=== PATIENT | male | born 1930 | race Caucasian/White ===

== ENCOUNTER 2016-08-30 18:37 | Emergency (ER) | payer OTHER, MEDICARE ==
[~2016-08-30] VITALS: Ht 172.7 cm; Wt 59.0 kg
[~2016-08-30 18:37] MED LIST: ACHYD1T PO; ASP325TEC; ATOR80TA76 PO; ATR20T; CARV3.122 PO; CLOP75TA28 PO; CPR250T PO; CPR500T PO; DUTA0.5C14 PO; GLIM4TAB PO; GLIP-123; GLYB2.5T4 PO; LEVO500T69 PO; MEMA1CAP; MEMA28CA PO; MTF500T; MULT1TAB63; ONDA4TAB10 PO; OXYB5TAB9; OXYC1TAB87 PO; PHEN200T27 PO; TAMS0.4C2 PO; TIMOLOL; TMSL.4C PO
--- NOTE | 2016-08-30 19:58 | ED GU-Male ---
General Chief Complaint: -Male Stated Complaint: BLOOD IN URINE Nursing Triage Note: PT C/O PAIN AND BLOOD WITH URINATION. Source: patient Exam Limitations: no limitations History of Present Illness Time seen by provider: 19:56 Initial Comments Brought to ER by his and daughter. They report "blood coming out of his Imogene" since earlier today. He also complained of some pain upon urination. 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 Timing/Duration: just prior to arrival Severity/Quality: moderate Location: unknown Associated Symptoms: denies symptomsNo fever/chills, No nausea/vomiting Allergies and Home Medications Allergies Coded Allergies: Cephalosporins (Unverified Allergy, Mild, 08/31/06) Penicillins (Unverified Allergy, Mild, 08/31/06) Home Medications Atorvastatin Calcium 80 Mg Tablet 80 MG PO DAILY (Reported) Carvedilol 3.125 Mg Tablet 3.125 MG PO BID (Reported) Clopidogrel Bisulfate 75 Mg Tablet 75 MG PO DAILY (Reported) Dutasteride 0.5 Mg Capsule 0.5 MG PO DAILY (Reported) Glimepiride 4 Mg Tablet 4 MG PO BID (Reported) Memantine HCl 28 Mg Cap.spr.24 28 MG PO DAILY@1730 (Reported) Ondansetron HCl 4 Mg Tablet 4 MG PO Q8H PRN PRN NAUSEA/VOMITING (Reported) Tamsulosin HCl 0.4 Mg Cap.er.24h 0.4 MG PO DAILY (Reported) Constitutional: see HPI EENTM: see HPI Respiratory: no symptoms reported Cardiovascular: no symptoms reported Genitourinary: see HPI hematuria Musculoskeletal: no symptoms reported Skin: no symptoms reported Psychiatric/Neurological: No Symptoms Reported Endocrine: No Symptoms Reported Past Orwoeqs-Tovqsa-Jmovjc Hx Patient Social History Alcohol Use: Denies Use Recreational Drug Use: No Smoking Status: Unknown if Ever Smoked Recent Foreign Travel: No Contact w/Someone Who Travel: No Recent Infectious Disease Expo: No Recent Hopitalizations: Yes (TERRA A WEEK AGO N/V/D) Physical Abuse Screen: No Sexual Abuse: No Immunizations Up To Date Tetanus Booster (TDap): Unknown Date of Pneumonia Vaccine: Jul 10, 2012 Date of Influenza Vaccine: Jun 16, 2016 Surgeries HX Surgeries: Yes (CABG 1988; CARDIAC STENTS X 3; BILATERAL CATARACTS; LITHOTRIPSY) Surgeries: Cardiac, CABG, Coronary Stent, Eye Surgery, Rectal Respiratory Hx Respiratory Disorders: No Cardiovascular Hx Cardiac Disorders: Yes Cardiac Disorders: Chronic Edema/Swelling, Coronary Artery Disease, High Cholesterol, Hypertension Neurological Hx Neurological Disorders: Yes Neurological Disorders: Dementia Reproductive System Hx Reproductive Disorders: No Genitourinary Hx Genitourinary Disorders: Yes Genitourinary Disorders: Prostate Problems, Kidney Stones Gastrointestinal Hx Gastrointestinal Disorders: No Musculoskeletal Hx Musculoskeletal Disorders: Yes (LEG CRAMPS EVERY ONCE IN A WHILE) Endocrine Hx Endocrine Disorders: Yes Endocrine Disorders: Diabetes, Non-Insulin dep HEENT HX ENT Disorders: Yes (WITH SURGERY) HEENT Disorders: Cataract Loss of Vision: Left Hearing Impairment: Denies Cancer Hx Cancer: Yes Cancer: Skin Psychosocial Hx Psychiatric Problems: No Integumentary HX Skin/Integumentary Disorder: Yes (SKIN CANCER) Blood Transfusions Hx Blood Disorders: Yes (CANNOT DONATE BLOOD DUE TO YELLOW JAUNDICE 40 YRS AGO) Family Medical History Family Medial History: ALZHEIMER'S G8 SISTER OF CANCER G8 BROTHER HEART PROBLEMS G8 BROTHER Physical Exam Vital Signs Vital Sign - Last 12Hours 08/30/16 19:08 Temp 98.7 Pulse 79 Resp 18 B/P 125/104 Pulse Ox 98 O2 Delivery Room Air Capillary Refill : Less Than 3 Seconds General Appearance: WD/WN no apparent distress HEENT: PERRL/EOMI normal ENT inspection Neck: non-tender full range of motion Respiratory: normal breath sounds no respiratory distress no accessory muscle use Gastrointestinal: non tender soft Extremities: normal range of motion non-tender Neurologic/Psychiatric: alert normal mood/affect other (disoriented per baseline) Skin: normal color warm/dry Progress/Results/Core Measures Results/Orders Lab Results Laboratory Tests Test 08/30/16 19:46 Range/Units Urine Bacteria FEW H /HPF Urine Bilirubin NEGATIVE NEGATIVE Urine Casts NONE /LPF Urine Clarity SLIGHTLY CLOUDY Urine Color YELLOW Urine Crystals NONE /LPF Urine Culture Indicated YES Urine Glucose (UA) 1+ H NEGATIVE Urine Ketones NEGATIVE NEGATIVE Urine Leukocyte Esterase 3+ H NEGATIVE Urine Mucus SMALL H /LPF Urine Nitrite NEGATIVE NEGATIVE Urine Protein 1+ H NEGATIVE Urine RBC >100 H /HPF Urine RBC (Auto) 5+ H NEGATIVE Urine Specific [place] 1.025 H 1.016-1.022 Urine Urobilinogen 1 NORMAL MG/DL Urine WBC 50-100 H /HPF Urine pH 5 5-9 My Orders Orders-CARLOS ROBERTS APRN Ua Culture If Indicated (08/30/16 19:09) Urine Culture (08/30/16 19:46) Levofloxacin Tablet (Levaquin Tablet) (08/30/16 20:15) Vital Signs/I&O Vital Sign - Last 12Hours 08/30/16 19:08 Temp 98.7 Pulse 79 Resp 18 B/P 125/104 Pulse Ox 98 O2 Delivery Room Air Blood Pressure Mean: 111 Departure Impression Impression: Primary Impression: Urinary tract infection Qualified Code: N30.01 - Acute cystitis with hematuria Additional Impression: Dementia Disposition: HOME, SELF-CARE Condition: Stable Departure-Patient Inst. Decision time for Depature: 20:16 Referrals: MARY KEENE DO (PCP/Family) Primary Care Physician Patient Instructions: Urinary Tract Infection, Adult (DC) Add. Discharge Instructions: 1. Antibiotic as directed 2. Follow-up with your doctor next week 3. Return to ER for any concerns All discharge instructions reviewed with patient and/or family. Voiced understanding. Scripts Ciprofloxacin HCl (Cipro)500 Mg [id number] Mg PO BID #14 TAB Prov:CARLOS ROBERTS APRN 08/30/16 CARLOS ROBERTS APRN Aug 30, 2016 19:58
[2016-08-30 20:01] LABS: BILIRUBIN,URINE NEGATIVE (NEGATIVE); KETONES,URINE NEGATIVE (NEGATIVE); LEUKOCYTE ESTERASE ,URINE 3+ (NEGATIVE); NITRITE,URINE NEGATIVE (NEGATIVE); PH,URINE 5 (5-9); PROTEIN,URINE 1+ (NEGATIVE); UROBILINOGEN,URINE 1 MG/DL (NORMAL)
[2016-08-30 20:11] LABS: WBC,URINE 50-100 /HPF
[2016-08-30] MEDS ORDERED: LEVOFLOXACIN 500 MG TAB (LEVAQUIN) PO ONE (20:15)
[2016-08-30] MEDS ORDERED: CIPR-225 PO (20:17)
[2016-08-30 20:41] VITALS: BP 131/72
== END 2016-08-30 20:37 | disposition home or self-care (01) ==
LOC: EDUNIT# 18:37 → ER 18:38
DX: N30.91 Cystitis, unspecified with hematuria (principal); F03.90 Unspecified dementia, unspecified severity, without behavioral disturbance, psychotic disturbance, mood disturbance, and anxiety; E11.9 Type 2 diabetes mellitus without complications; I10 Essential (primary) hypertension; I69.998 Other sequelae following unspecified cerebrovascular disease; Z79.02 Long term (current) use of antithrombotics/antiplatelets; Z79.84 Long term (current) use of oral hypoglycemic drugs; Z79.899 Other long term (current) drug therapy; Z95.1 Presence of aortocoronary bypass graft; Z95.5 Presence of coronary angioplasty implant and graft
CPT/HCPCS: 81000; 87077; 87088; 87186; 99283

== ENCOUNTER 2016-09-04 13:57 | Emergency (ER) | payer OTHER, MEDICARE ==
[~2016-09-04] VITALS: Ht 172.7 cm; Wt 63.5 kg
[~2016-09-04 13:57] MED LIST changes: +CIPR-225 PO
--- OUTSIDE RECORDS SUMMARY | 2016-09-04 14:04 | XMS REPORT | Continuity of Care Document ---
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 No 08/30/16 7:11pm Organ Donor Yes 08/30/16 7:11pm Resuscitation Status Full Code 08/30/16 7:11pm Chief Complaint and Reason for Visit Chief Complaint -Male Reason for Visit Urinary tract infection Dementia Problems Active Problems Medical Problem Onset Date Status Dementia Unknown Acute Hx of coronary artery disease Unknown Acute Urinary tract infection Unknown Acute Medications Current Home Medications Medication Dose Units Route Directions Days/Qty Instructions Start Date Tamsulosin Hcl 0.4 Mg 0.4 Mg Oral Daily 06/22/16 Dutasteride 0.5 Mg 0.5 Mg Oral Daily 06/22/16 Glimepiride 4 Mg 4 Mg Oral Twice A Day 06/22/16 Carvedilol 3.125 Mg 3.125 Mg Oral Twice A Day 06/22/16 Clopidogrel Bisulfate 75 Mg 75 Mg Oral Daily 06/22/16 Atorvastatin Calcium 80 Mg 80 Mg Oral Daily 06/22/16 Memantine Hcl 28 Mg 28 Mg Oral Daily@1730 06/22/16 Ondansetron Hcl 4 Mg 4 Mg Oral Every 8HRS as needed for Nausea/Vomiting 06/23/16 Ciprofloxacin Hcl 500 Mg 500 Mg Oral Twice A Day 14 08/30/16 Past Home Medications Medication Directions Ordered Status Aspirin 325 Mg Tablet, As Needed 08/31/06 Discontinued Multivitamins 1 Ea Tablet, As Needed 08/31/06 Discontinued [Timolol] , 08/31/06 Discontinued Metformin Hcl (Glucophage) 500 Mg Tablet, 08/31/06 Discontinued Glipizide 10 Mg Tablet, 08/31/06 Discontinued Atorvastatin Calcium 20 Mg Tablet, 08/31/06 Discontinued Glyburide (Micronase) 2.5 Mg Tablet, 1 Each Oral Three Times A Day Before Meals 07/10/12 Discontinued Tamsulosin Hcl 0.4 Mg Cap, 0.4 Mg Oral Bedtime 07/11/12 Discontinued Oxycodone/Acetaminophen 1 Tab Tablet, 1 Tab Oral Every 4HRS as needed Discontinued Ciprofloxacin Hcl 250 Mg Tablet, 1 Tab Oral Twice A Day 07/11/12 Discontinued Ciprofloxacin 500 Mg Tablet, 1 Tab Oral Twice A Day 07/14/12 Discontinued Phenazopyridine Hcl 200 Mg Tablet, 1 Each Oral Three Times A Day And Prn 13/08 Discontinued Acetaminophen/Hydrocodone Bitart 1 Tab Tablet, 1 - 2 Tab Oral Every 4HRS as needed 07/14/12 Discontinued Tamsulosin Hcl 0.4 Mg Cap.sr.24h, 1 Cap Oral Daily 07/21/12 Discontinued Ciprofloxacin 500 Mg Tablet, 1 Tab Oral Twice A Day 07/21/12 Discontinued Levofloxacin 500 Mg Tab, 1 Each Oral Daily 07/22/12 Discontinued Memantine Hcl 1 Each Cap24.dspk, 06/22/16 Discontinued Oxybutynin Chloride 5 Mg Tablet, 06/22/16 Discontinued Social History Social History Problem Response Recorded Date/Time Alcohol Use Denies Use 02/18/2013 5:12pm Recreational Drug Use No 02/18/2013 5:12pm Recent Foreign Travel No 02/18/2013 5:12pm Recent Infectious Disease Exposure No 02/18/2013 5:12pm Hospitalization with Isolation Denies 08/30/2016 7:08pm Smoking Status Unknown if Ever Smoked 08/30/2016 7:11pm Recent Hopitalizations Y TERRA A WEEK AGO N/V/D 08/30/2016 7:11pm Hospitalization with Isolation Denies 08/30/2016 7:08pm Query Response Start Date Stop Date Smoking Status Unknown if Ever Smoked Hospital Discharge Instructions No hospital discharge instructions. Plan of Care Discharge Date 08/30/16 8:37pm Disposition 01 HOME, SELF-CARE Condition at Discharge Stable Instructions/Education Provided Urinary Tract Infection, Adult (DC) Prescriptions See Medication Section Referrals MARY KEENE DO - Primary Care Physician Additional Instructions/Education 1. Antibiotic as directed 2. Follow-up with your doctor next week 3. Return to ER for any concerns All discharge instructions reviewed with patient and/or family. Voiced understanding. Functional Status No functional status results. Allergies, Adverse Reactions, Alerts Allergen Type Severity Reaction Status Last Updated Penicillins ([id number]) Allergy Mild Active 08/31/06 Cephalosporins ([id number]) Allergy Mild Active 08/31/06 Immunizations No immunization records. Vital Signs Acute Vital Signs Vital Response Date/Time Temperature (Fahrenheit) 98.7 degrees F (97.6 - 99.5) 08/30/2016 7:08pm Temperature (Calculated Celsius) 37.26152 degrees C (36.4 - 37.5) 08/30/2016 7:08pm Temperature Source Temporal 08/30/2016 7:08pm Pulse Rate (adult) 79 bpm (60 - 90) 08/30/2016 7:08pm Respiratory Rate 18 bpm (12 - 24) 08/30/2016 7:08pm O2 Sat by Pulse Oximetry 98 % (88 - 100) 08/30/2016 7:08pm Blood Pressure 125/104 mm Hg 08/30/2016 7:08pm Blood Pressure Mean 111 mm Hg 08/30/2016 7:08pm Pain Numeric Pain Scale 0-No Pain 08/30/2016 7:08pm Height (Feet) 5 feet 08/30/2016 7:08pm Height (Inches) 8 inches 08/30/2016 7:08pm Height (Calculated Centimeters) 172.018626 cm 08/30/2016 7:08pm Weight (Pounds) 130 pounds 08/30/2016 7:08pm Weight (Calculated Kilograms) 58.105832 kilograms 08/30/2016 7:08pm Capillary Refill Capillary Refill Less Than 3 Seconds 08/30/2016 7:08pm Height 5 ft 8 in Weight 130 lb Body Mass Index 19.8 kg/m^2 Results Laboratory Results Test Name Result Units Flags Reference Collection Date/Time Result Date/ Time Comments Urine Color YELLOW 08/30/2016 7:46pm 08/30/2016 8:11pm Urine Clarity SLIGHTLY CLOUDY 08/30/2016 7:46pm 08/30/2016 8:11pm Urine pH 5 5-9 08/30/2016 7:46pm 08/30/2016 8:11pm Urine Specific [place] 1.025 * 1.016-1.022 08/30/2016 7:46pm 2016 8:11pm Urine Protein 1+ * NEGATIVE 08/30/2016 7:46pm 08/30/2016 8:11pm Urine Glucose (UA) 1+ * NEGATIVE 08/30/2016 7:46pm 08/30/2016 8:11pm Urine RBC (Auto) 5+ * NEGATIVE 08/30/2016 7:46pm 08/30/2016 8:11pm Urine Ketones NEGATIVE NEGATIVE 08/30/2016 7:46pm 08/30/2016 8:11pm Urine Nitrite NEGATIVE NEGATIVE 08/30/2016 7:46pm 08/30/2016 8:11pm Urine Bilirubin NEGATIVE NEGATIVE 08/30/2016 7:46pm 08/30/2016 8: 11pm Urine Urobilinogen 1 MG/DL NORMAL 08/30/2016 7:46pm 08/30/2016 8:11pm Urine Leukocyte Esterase 3+ * NEGATIVE 08/30/2016 7:46pm 08/30/2016 8: 11pm Urine RBC >100 /HPF * 08/30/2016 7:46pm 08/30/2016 8:11pm Urine WBC 50-100 /HPF * 08/30/2016 7:46pm 08/30/2016 8:11pm Urine Bacteria FEW /HPF * 08/30/2016 7:46pm 08/30/2016 8:11pm Urine Crystals NONE /LPF 08/30/2016 7:46pm 08/30/2016 8:11pm Urine Casts NONE /LPF 08/30/2016 7:46pm 08/30/2016 8:11pm Urine Mucus SMALL /LPF * 08/30/2016 7:46pm 08/30/2016 8:11pm Urine Culture Indicated YES 08/30/2016 7:46pm 08/30/2016 8:11pm Procedures No known history of procedures. Encounters Encounter Location Arrival/Admit Date Discharge/Depart Date Attending Provider Departed Emergency Room [facility] 08/30/16 6:38pm 08/30 8:37pm CARLOS ROBERTS APRN Recent Diagnosis
--- NOTE | 2016-09-04 15:30 | ED Upper Extremity ---
General Chief Complaint: Upper Extremity Stated Complaint: LEFT HAND TINGLING Nursing Triage Note: PT TO ED W FAMILY, PT STATES HAS L HAND NUMBNESS. PT HAS DEMENTIA, PT IS ABLE TO MOVE HAND BILATERALLY, PT SOLDERER EQUAL. PT HAS HX STROKE IN JUL 01. PT IS ALERT AND TALKING W FAMILY AND THIS RN. PT DOES NOT AMBULATE Nursing Sepsis Screen: No Definite Risk Source: patient Exam Limitations: no limitations History of Present Illness Time seen by provider: 15:16 Initial Comments Here with report of left hand numbness. This occurred earlier today but has since resolved. Patient previously had a stroke that affected the left side and he was scared by this and wanted evaluation. Currently he has no complaints. Onset: this morning Severity: mild Pain/Injury Location: left hand Method of Injury: unknown Modifying Factors: Improves With Rest Allergies and Home Medications Allergies Coded Allergies: Cephalosporins (Unverified Allergy, Mild, 08/31/06) Penicillins (Unverified Allergy, Mild, 08/31/06) Home Medications Atorvastatin Calcium 80 Mg Tablet 80 MG PO DAILY (Reported) Carvedilol 3.125 Mg Tablet 3.125 MG PO BID (Reported) Ciprofloxacin HCl 500 Mg Tablet #14 500 MG PO BID Prescribed by: CARLOS ROBERTS on 08/30/162016 Clopidogrel Bisulfate 75 Mg Tablet 75 MG PO DAILY (Reported) Dutasteride 0.5 Mg Capsule 0.5 MG PO DAILY (Reported) Glimepiride 4 Mg Tablet 4 MG PO BID (Reported) Memantine HCl 28 Mg Cap.spr.24 28 MG PO DAILY@1730 (Reported) Ondansetron HCl 4 Mg Tablet 4 MG PO Q8H PRN PRN NAUSEA/VOMITING (Reported) Tamsulosin HCl 0.4 Mg Cap.er.24h 0.4 MG PO DAILY (Reported) Constitutional: see HPINo chills, No fever Respiratory: no symptoms reported Cardiovascular: no symptoms reported Genitourinary: no symptoms reported Musculoskeletal: no symptoms reported Skin: no symptoms reported Psychiatric/Neurological: See HPI Anxiety Paresthesia All Other Systems Reviewed Negative Unless Noted: Yes Past Xxrzmam-Ckcvsk-Xgroup Hx Patient Social History Alcohol Use: Denies Use Recreational Drug Use: No Smoking Status: Never a Smoker Recent Foreign Travel: No Contact w/Someone Who Travel: No Recent Infectious Disease Expo: No Recent Hopitalizations: No ([place] A WEEK AGO N/V/D) Physical Abuse Screen: No Sexual Abuse: No Immunizations Up To Date Tetanus Booster (TDap): Unknown Date of Pneumonia Vaccine: Jul 10, 2012 Date of Influenza Vaccine: Jun 16, 2016 Surgeries HX Surgeries: Yes (CABG 1988; CARDIAC STENTS X 3; BILATERAL CATARACTS; LITHOTRIPSY) Surgeries: Cardiac, CABG, Coronary Stent, Eye Surgery, Rectal Respiratory Hx Respiratory Disorders: No Cardiovascular Hx Cardiac Disorders: Yes Cardiac Disorders: Chronic Edema/Swelling, Coronary Artery Disease, High Cholesterol, Hypertension Neurological Hx Neurological Disorders: Yes Neurological Disorders: Dementia Reproductive System Hx Reproductive Disorders: No Genitourinary Hx Genitourinary Disorders: Yes Genitourinary Disorders: Prostate Problems, Kidney Stones Gastrointestinal Hx Gastrointestinal Disorders: No Musculoskeletal Hx Musculoskeletal Disorders: Yes (LEG CRAMPS EVERY ONCE IN A WHILE) Endocrine Hx Endocrine Disorders: Yes Endocrine Disorders: Diabetes, Non-Insulin dep HEENT HX ENT Disorders: Yes (WITH SURGERY) HEENT Disorders: Cataract Loss of Vision: Left Hearing Impairment: Denies Cancer Hx Cancer: Yes Cancer: Skin Psychosocial Hx Psychiatric Problems: No Integumentary HX Skin/Integumentary Disorder: Yes (SKIN CANCER) Blood Transfusions Hx Blood Disorders: Yes (CANNOT DONATE BLOOD DUE TO YELLOW JAUNDICE 40 YRS AGO) Reviewed Nursing Assessment Reviewed/Agree w Nursing PMH: Yes Family Medical History Significant Family History: No Pertinent Family Hx Family Medial History: ALZHEIMER'S G8 SISTER OF CANCER G8 BROTHER HEART PROBLEMS G8 BROTHER Physical Exam Vital Signs Vital Sign - Last 12Hours 09/04/16 14:15 Temp 97.1 Pulse 77 Resp 18 B/P 127/66 Pulse Ox 98 Capillary Refill : Less Than 3 Seconds General Appearance: WD/WN no apparent distress HEENT: PERRL/EOMI pharynx normal Neck: full range of motion supple Cardiovascular: regular rate, rhythm no murmur Respiratory: lungs clear normal breath sounds Gastrointestinal: non tender soft Shoulder: normal inspection non-tender no evidence of injury normal ROM Elbow/Forearm: normal inspection, non-tender, no evidence of injury, normal ROM Wrist: Yes normal inspection, Yes non-tender, Yes no evidence of injury, Yes normal ROM Hand: normal inspection, non-tender, no evidence of injury, normal ROM, Bilateral Neurologic/Psychiatric: no motor/sensory deficits alert normal mood/affect oriented x 3 Skin: normal color warm/dry Progress/Results/Core Measures Results/Orders Vital Signs/I&O Vital Sign - Last 12Hours 09/04/16 14:15 Temp 97.1 Pulse 77 Resp 18 B/P 127/66 Pulse Ox 98 Blood Pressure Mean: 86 Progress Note : Progress Note Seen and evaluated. Striker Off strength equal bilateral. Good distal pulses and cap refill. No acute findings now and patient is reassured. Discharged home with return precautions. Patient family verbalized understanding instructions and agreement with plan. Departure Impression Impression: Primary Impression: Paresthesia of hand Qualified Code: R20.2 - Paresthesia of skin Disposition: HOME, SELF-CARE Condition: Improved Departure-Patient Inst. Decision time for Depature: 15:29 Referrals: NO,LOCAL PHYSICIAN (PCP/Family) Primary Care Physician Patient Instructions: Paresthesias (DC) Add. Discharge Instructions: All discharge instructions reviewed with patient and/or family. Voiced understanding. Continue home medications as directed. Follow-up with your doctor next week for recheck. Return for worsening, fever, vomiting, weakness, breathing problems or other concerns as needed. DAMIEN ESPANA MD Sep 04, 2016 15:30
[2016-09-04 15:47] VITALS: BP 127/66
== END 2016-09-04 15:47 | disposition home or self-care (01) ==
LOC: EDUNIT# 13:57 → ER 14:00
DX: R20.2 Paresthesia of skin (principal); I10 Essential (primary) hypertension; I25.10 Atherosclerotic heart disease of native coronary artery without angina pectoris; E11.9 Type 2 diabetes mellitus without complications; F03.90 Unspecified dementia, unspecified severity, without behavioral disturbance, psychotic disturbance, mood disturbance, and anxiety; I69.954 Hemiplegia and hemiparesis following unspecified cerebrovascular disease affecting left non-dominant side; Z79.84 Long term (current) use of oral hypoglycemic drugs; Z79.899 Other long term (current) drug therapy; Z79.02 Long term (current) use of antithrombotics/antiplatelets; Z95.1 Presence of aortocoronary bypass graft; Z95.5 Presence of coronary angioplasty implant and graft
CPT/HCPCS: 99282

== ENCOUNTER 2017-11-20 18:31 | Inpatient (IN) | payer MEDICARE, OTHER ==
[~2017-11-20] VITALS: Ht 172.7 cm; Wt 55.3 kg
[~2017-11-20 18:31] MED LIST changes: +ACET325T49 PO; +ACHD5005 PO; +ASPI-983 PO; +BISA5TAB8 PO; +CALC-823 PO; +MEMA10TA22 PO; +SENN-140 PO
--- OUTSIDE RECORDS SUMMARY | 2017-11-20 18:43 | XMS REPORT ---
Author Author MAGALI GARCIA Organization [facility] Address [address] [place] [address] Care Team Providers Care Portable Track Crew Chief Name Role Phone JOSE MAGALI Unavailable PROBLEMS Type Condition ICD9-CM Code [id number] Code Onset Dates Condition Status SNOMED Code Problem Postoperative anemia D64.9 Active 369111618 Problem Coronary artery disease involving coronary bypass graft of [place] heart without angina pectoris I25.810 Active 151757254 Problem Fracture of left hip requiring operative repair, closed, initial encounter S72.002A Active 809979201 Problem Type 2 diabetes mellitus without complication, without long-term current use of insulin E11.9 Active 200341053 Problem Paresthesias in left hand R20.2 Active 822454246 ALLERGIES Substance Reaction Event Type Date Status Penicillin G Benzathine Unknown Drug Allergy Jun, Active SOCIAL HISTORY Never Assessed PLAN OF CARE VITAL SIGNS Temperature 97.3 degrees Fahrenheit 2016 Heart Rate 80 bpm 2016 Respiratory Rate 20 2016 Blood pressure systolic 118 mmHg 2016 Blood pressure diastolic 64 mmHg 2016 MEDICATIONS Medication Instructions Dosage Frequency Start Date End Date Duration Status Atorvastatin Calcium 80 MG Orally Once a day 1 tablet 24h Active Carvedilol 3.125 MG Active Glimepiride 4 MG Orally twice a day 1 tablet with breakfast or the first main meal of the day 12h Active Namenda XR 28 MG Orally Once a day 1 capsule 24h Active Zofran 4 MG Orally every 8 hours as needed 1 tablet May, 5 days Active VESIcare 5 MG Orally Once a day 1 tablet 24h Active Clopidogrel Bisulfate 75 MG Orally Once a day 1 tablet 24h Active Oxybutynin Chloride 5 MG Orally Twice a day 1 tablet 12h Active RESULTS No Results PROCEDURES No Known procedures IMMUNIZATIONS No Known Immunizations MEDICAL (GENERAL) HISTORY Type Description Date Medical History Cardiac Medical History Skin cancer Surgical History cardiac stent Surgical History cataract removal Surgical History Open heart surgery Hospitalization History diarrhea/ weakness 2015
--- OUTSIDE RECORDS SUMMARY | 2017-11-20 18:43 | XMS REPORT ---
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, without long-term current use of insulin E11.9 Active 745885105 Problem Paresthesias in left hand R20.2 Active 641567040 ALLERGIES No Information ENCOUNTERS Encounter Location Date Diagnosis [facility] [id number] [place] [id number] Feb, [facility] [id number] [place] [id number] Feb, [facility] [employer] [facility] [address] [place] [phone] Jan, Type 2 diabetes mellitus without complication, without long-term current use of insulin E11.9 ; Coronary artery disease involving coronary bypass graft of [place] heart without angina pectoris I25.810 and Postoperative anemia D64.9 [facility] [address] [facility] [id number] [phone] Jan, [facility] [address] [id number] [address] Jun, Paresthesias in left hand R20.2 [facility] [address] [id number], [place] [address] May, Gastroenteritis K52.9 IMMUNIZATIONS No Known Immunizations SOCIAL HISTORY Never Assessed REASON FOR VISIT New [place] admit PLAN OF CARE VITAL SIGNS MEDICATIONS Medication Instructions Dosage Frequency Start Date End Date Duration Status Clopidogrel Bisulfate 75 MG Orally Once a day 1 tablet 24h Active Acetaminophen 325 MG Orally every 6 hrs 2 tablets as needed 6h Active Bisacodyl 5 MG Orally Once a day 1 tablet as needed 24h Active Aspirin EC 81 MG Orally Once a day 1 tablet 24h Active Carvedilol 3.125 MG Orally 2 times a day 1 tablet 12h Active Memantine HCl 10 MG Orally Twice a day 1 tablet 12h Active Senna Concentrate 8.6 MG Orally twice a day 1 tablet 12h Active Glimepiride 4 MG Orally twice a day 1 tablet with breakfast or the first main meal of the day 12h Active Hydrocodone-Acetaminophen 5-325 MG Orally every 4 hrs 1-2 tablet as needed 4h Active Calcium Carbonate 500 MG Orally Once a day 1 tablet 24h Active RESULTS No Results PROCEDURES No Known procedures INSTRUCTIONS MEDICATIONS ADMINISTERED No Known Medications MEDICAL (GENERAL) HISTORY Type Description Date Medical History Cardiac Medical History Skin cancer Surgical History cardiac stent Surgical History cataract removal Surgical History Open heart surgery Hospitalization History diarrhea/ weakness 2015
--- OUTSIDE RECORDS SUMMARY | 2017-11-20 18:44 | XMS REPORT | Continuity of Care Document ---
Author Author [facility] Organization [facility] Address Unknown Phone Unavailable Allergies Active Description Code Type Severity Reaction Onset Reported/Identified Relationship to Patient Clinical Status Yes Cephalosporins [id number] Drug Allergy Mild N/A 08/31/2006 Yes Penicillins [id number] Drug Allergy Mild N/A 08/31/2006 Medications There is no data. 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 04/22/2012 Ot V45.82 PERCUTANEOUS TRANSLUM CORON ANGIOPLASTY 07/11/2012 Ot 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 07/11/2012 Ot 250.00 DIAB EUGENIA WO COMPL, TYPE II OR UNSPEC TY 07/11/2012 Ot 272.4 HYPERLIPIDEMIA NEC/NOS 07/11/2012 Ot 365.9 GLAUCOMA NOS 07/11/2012 Ot 412 OLD MYOCARDIAL INFARCT 07/11/2012 Ot 414.00 CORON ATHEROSCLER NOS TYPE VESSEL, NATIV 07/11/2012 Ot 443.9 PERIPH VASCULAR DIS NOS 07/11/2012 Ot 562.10 DIVERTICULOSIS COLON (W/O MENT OF HEMORR 07/11/2012 Ot 592.0 CALCULUS OF KIDNEY 07/11/2012 Ot 592.1 CALCULUS OF URETER 07/11/2012 Ot 593.2 CYST OF KIDNEY, ACQUIRED 07/11/2012 Ot 600.00 HYPERTROPHY (BENIGN) OF PROSTATE W/O URI 07/11/2012 Ot 702.0 ACTINIC KERATOSIS 07/11/2012 Ot 715.90 OSTEOARTHROS NOS-UNSPEC 07/11/2012 Ot V04.81 ND FOR PROPHYLACTIC VACCIN AND INOCULATI 07/11/2012 Ot 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 02/18/2013 [place] FACC, ALI FACP CCDS Ot 250.00 DIAB EUGENIA WO COMPL, TYPE II OR UNSPEC TY 02/18/2013 [place] FACC, ALI FACP CCDS Ot 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,OTH INFERIOR WALL,INI 02/18/2013 [place] FACC, ALI FACP CCDS Ot 414.01 CORONARY ATHEROSCLEROSIS OF [place] CORON 02/18/2013 [place] FACC, ALI FACP CCDS Ot 427.89 CARDIAC DYSRHYTHMIAS NEC 02/18/2013 BRE WEBERC, ALI FACP CCDS Ot 458.9 HYPOTENSION NOS 02/18/2013 [place] FACC, ALI FACP CCDS Ot 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 09/24/2014 MARY KEENE DO Ot 786.2 01/04/2015 EATON DOMARY Ot 786.2 03/04/2016 EATON MARY WASHINGTON Ot 786.2 COUGH 03/04/2016 EATMARY HOU DO Ot 786.2 COUGH 03/05/2016 MARY KEENE DO Ot R10.32 LEFT LOWER QUADRANT PAIN 03/05/2016 MARY KEENE DO Ot Z90.49 ACQUIRED ABSENCE OF OTHER SPECIFIED PART 03/16/2016 MARY KEENE DO Ot R10.32 LEFT LOWER QUADRANT PAIN 03/16/2016 EATON MARY [place]ASHINGTON Ot Z90.49 ACQUIRED ABSENCE OF OTHER SPECIFIED PART 04/01/2016 EATON MARY WASHINGTON Ot R10.32 LEFT LOWER QUADRANT PAIN 04/01/2016 EATON MARY WASHINGTON Ot Z90.49 ACQUIRED ABSENCE OF OTHER SPECIFIED PART 05/16/2016 Ot 788.20 RETENTION OF URINE NOS 05/16/2016 Ot 791.9 ABN URINE FINDINGS NEC 05/16/2016 Ot V45.89 POSTSURGICAL STATES NEC 06/18/2016 EATMARY HOU DO Ot 786.2 COUGH 06/18/2016 MARY KEENE DO Ot R10.32 LEFT LOWER QUADRANT PAIN 06/18/2016 MARY KEENE DO Ot Z90.49 ACQUIRED ABSENCE OF OTHER SPECIFIED PART 06/19/2016 OTHER, UNLISTED Ot N17.9 ACUTE KIDNEY FAILURE, UNSPECIFIED 06/24/2016 ABDULLAHI MURRIETA MD Ot E11.9 TYPE 2 DIABETES MELLITUS WITHOUT COMPLIC 06/24/2016 [place], ABDULLAHI Chinchilla Ot E78.00 PURE HYPERCHOLESTEROLEMIA, UNSPECIFIED 06/24/2016 ABDULLAHI MURRIETA MD Ot F03.90 UNSPECIFIED DEMENTIA WITHOUT BEHAVIORAL 06/24/2016 ABDULLAHI MURRIETA MD Ot G81.94 HEMIPLEGIA, UNSPECIFIED AFFECTING LEFT N 06/24/2016 ABDULLAHI MURRIETA MD Ot I10 ESSENTIAL (PRIMARY) HYPERTENSION 06/24/2016 ABDULLAHI MURRIETA MD Ot I25.10 ATHSCL HEART DISEASE OF [place] CORONARY 06/24/2016 ABDULLAHI MURRIETA MD Ot I63.9 CEREBRAL INFARCTION, UNSPECIFIED 06/24/2016 ABDULLAHI MURRIETA MD Ot N40.0 BENIGN PROSTATIC HYPERPLASIA WITHOUT LOW 06/24/2016 [place], ABDULLAHI Chinchilla Ot 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 06/24/2016 [place], ABDULLAHI Chinchilla Ot Z95.1 PRESENCE OF AORTOCORONARY BYPASS GRAFT 06/24/2016 ABDULLAHI MURRIETA MD Ot Z95.5 PRESENCE OF CORONARY ANGIOPLASTY IMPLANT 07/01/2016 OTHER, UNLISTED Ot N17.9 ACUTE KIDNEY FAILURE, UNSPECIFIED 07/24/2016 OTHER, UNLISTED Ot N17.9 ACUTE KIDNEY FAILURE, UNSPECIFIED 08/30/2016 CARLOS ROBERTS APRN Ot E11.9 TYPE 2 DIABETES MELLITUS WITHOUT COMPLIC 08/30/2016 CARLOS ROBERTS APRN Ot F03.90 UNSPECIFIED DEMENTIA WITHOUT BEHAVIORAL 08/30/2016 CARLOS ROBERTS APRN Ot I10 ESSENTIAL (PRIMARY) HYPERTENSION 08/30/2016 CARLOS ROBERTS APRN Ot I69.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 CER 08/30/2016 CARLOS ROBERTS APRN Ot N30.91 CYSTITIS, UNSPECIFIED WITH HEMATURIA 08/30/2016 CARLOS ROBERTS APRN Ot R31.9 HEMATURIA, UNSPECIFIED 08/30/2016 CARLOS ROBERTS APRN Ot Z79.02 HALFWAY (CURRENT) USE OF ANTITHROMBOTI 08/30/2016 CARLOS ROBERTS APRN Ot Z79.84 CHEMIST WATER PURIFICATION (CURRENT) USE OF ORAL HYPOGLYC 08/30/2016 CARLOS ROBERTS [employer]LE[employer] INSTRUCTOR Ot Z79.899 OTHER HALFWAY (CURRENT) DRUG THERAPY 08/30/2016 CARLOS ROBERTS [employer]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 Ot Z95.1 PRESENCE OF AORTOCORONARY BYPASS GRAFT 08/30/2016 CARLSO ROBERTS COLLEGE INSTRUCTOR Ot Z95.5 PRESENCE OF CORONARY ANGIOPLASTY IMPLANT 09/01/2016 CARLOS ROBERTS APRN Ot E11.9 TYPE 2 DIABETES MELLITUS WITHOUT COMPLIC 09/01/2016 CARLOS ROBERTS APRN Ot F03.90 UNSPECIFIED DEMENTIA WITHOUT BEHAVIORAL 09/01/2016 CARLOS ROBERTS APRN Ot I10 ESSENTIAL (PRIMARY) HYPERTENSION 09/01/2016 CARLOS ROBERTS APRN Ot I69.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 CER 09/01/2016 CARLOS ROBERTS APRN Ot N30.91 CYSTITIS, UNSPECIFIED WITH HEMATURIA 09/01/2016 CARLOS ROBERTS APRN Ot R31.9 HEMATURIA, UNSPECIFIED 09/01/2016 CARLOS ROBERTS APRN Ot Z79.02 HALFWAY (CURRENT) USE OF ANTITHROMBOTI 09/01/2016 CARLOS ROBERTS APRN Ot Z79.84 CHEMIST WATER PURIFICATION (CURRENT) USE OF ORAL HYPOGLYC 09/01/2016 CARLOS ROBERTS APRN Ot Z79.899 OTHER HALFWAY (CURRENT) DRUG THERAPY 09/01/2016 CARLOS ROBERTS APRN Ot Z95.1 PRESENCE OF AORTOCORONARY BYPASS GRAFT 09/01/2016 CARLOS ROBERTS APRN Ot Z95.5 PRESENCE OF CORONARY ANGIOPLASTY IMPLANT 09/04/2016 DAMIEN ESPANA MD Ot E11.9 TYPE 2 DIABETES MELLITUS WITHOUT COMPLIC 09/04/2016 DAMIEN ESPANA MD Ot F03.90 UNSPECIFIED DEMENTIA WITHOUT BEHAVIORAL 09/04/2016 DAMIEN ESPANA MD Ot I10 ESSENTIAL (PRIMARY) HYPERTENSION 09/04/2016 DAMIEN ESPANA MD Ot I25.10 ATHSCL HEART DISEASE OF [place] CORONARY 09/04/2016 DAMIEN ESPANA MD Ot 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 09/04/2016 DAMIEN ESPANA MD Ot R20.2 PARESTHESIA OF SKIN 09/04/2016 DAMIEN ESPANA MD, Ot Z79.02 HALFWAY (CURRENT) USE OF ANTITHROMBOTI 09/04/2016 DAMIEN ESPANA MD Ot Z79.84 CHEMIST WATER PURIFICATION (CURRENT) USE OF ORAL HYPOGLYC 09/04/2016 DAMIEN ESPANA MD, Ot Z79.899 OTHER HALFWAY (CURRENT) DRUG THERAPY 09/04/2016 DAMIEN ESPANA MD Ot Z95.1 PRESENCE OF AORTOCORONARY BYPASS GRAFT 09/04/2016 DAMIEN ESPANA MD Ot Z95.5 PRESENCE OF CORONARY ANGIOPLASTY IMPLANT 09/04/2016 MARY KEENE DO Ot 786.2 COUGH 09/04/2016 MARY KEENE DO Ot R10.32 LEFT LOWER QUADRANT PAIN 09/04/2016 MARY KEENE DO Ot Z90.49 ACQUIRED ABSENCE OF OTHER SPECIFIED PART 09/04/2016 OTHER, UNLISTED Ot N17.9 ACUTE KIDNEY FAILURE, UNSPECIFIED 09/07/2016 DAMIEN ESPANA MD Ot E11.9 TYPE 2 DIABETES MELLITUS WITHOUT COMPLIC 09/07/2016 DAMIEN ESPANA MD Ot F03.90 UNSPECIFIED DEMENTIA WITHOUT BEHAVIORAL 09/07/2016 DAMIEN ESPANA MD Ot I10 ESSENTIAL (PRIMARY) HYPERTENSION 09/07/2016 DAMIEN ESPANA MD, Ot I25.10 ATHSCL HEART DISEASE OF [place] CORONARY 09/07/2016 DAMIEN ESPANA MD Ot 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 09/07/2016 DAMIEN ESPANA MD Ot R20.2 PARESTHESIA OF SKIN 09/07/2016 DAMIEN ESPANA MD, Ot Z79.02 HALFWAY (CURRENT) USE OF ANTITHROMBOTI 09/07/2016 DAMIEN ESPANA MD, Ot Z79.84 HALFWAY (CURRENT) USE OF ORAL HYPOGLYC 09/07/2016 DAMIEN ESPANA MD, Ot Z79.899 OTHER HALFWAY (CURRENT) DRUG THERAPY 09/07/2016 DAMIEN ESPANA MD Ot Z95.1 PRESENCE OF AORTOCORONARY BYPASS GRAFT 09/07/2016 DAMIEN ESPANA MD Ot Z95.5 PRESENCE OF CORONARY ANGIOPLASTY IMPLANT 09/08/2016 EATMARY HOU DO Ot 786.2 COUGH 09/08/2016 GEORGETTEMARY HOU DO Ot R10.32 LEFT LOWER QUADRANT PAIN 09/08/2016 YECENIA MARY WASHINGTON Ot Z90.49 ACQUIRED ABSENCE OF OTHER SPECIFIED PART 09/08/2016 OTHER, UNLISTED Ot N17.9 ACUTE KIDNEY FAILURE, UNSPECIFIED 02/05/2017 MAU GUZMAN MD Ot C44.90 UNSPECIFIED MALIGNANT NEOPLASM OF SKIN, 02/05/2017 MAU GUZMAN MD Ot D62 ACUTE POSTHEMORRHAGIC ANEMIA 02/05/2017 MAU GUZMAN MD Ot E11.9 TYPE 2 DIABETES MELLITUS WITHOUT COMPLIC 02/05/2017 MAU GUZMAN MD, Ot E78.00 PURE HYPERCHOLESTEROLEMIA, UNSPECIFIED 02/05/2017 MAU GUZMAN MD, Ot E78.5 HYPERLIPIDEMIA, UNSPECIFIED 02/05/2017 MAU GUZMAN MD Ot F03.90 UNSPECIFIED DEMENTIA WITHOUT BEHAVIORAL 02/05/2017 MAU GUZMAN MD Ot 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, ONE EYE, UNSPEC 02/05/2017 MAU GUZMAN MD Ot I10 ESSENTIAL (PRIMARY) HYPERTENSION 02/05/2017 MAU GUZMAN MD Ot I25.10 ATHSCL HEART DISEASE OF [place] CORONARY 02/05/2017 MAU GUZMAN MD Ot N40.0 BENIGN PROSTATIC HYPERPLASIA WITHOUT LOW 02/05/2017 MAU GUZMAN MD Ot R60.0 LOCALIZED EDEMA 02/05/2017 MAU GUZMAN MD Ot S72.142A DISPLACED INTERTROCHANTERIC FRACTURE OF 02/05/2017 MAU GUZMAN MD Ot W19.XXXA UNSPECIFIED FALL, INITIAL ENCOUNTER 02/05/2017 MAU GUZMAN MD Ot Z79.84 CHEMIST WATER PURIFICATION (CURRENT) USE OF ORAL HYPOGLYC 02/05/2017 MAU GUZMAN MD Ot Z95.1 PRESENCE OF AORTOCORONARY BYPASS GRAFT 02/05/2017 MAU GUZMAN MD Ot Z95.5 PRESENCE OF CORONARY ANGIOPLASTY IMPLANT 03/18/2017 MARY KEENE DO Ot 786.2 COUGH 03/18/2017 MARY KEENE DO Ot R10.32 LEFT LOWER QUADRANT PAIN 03/18/2017 MARY KEENE DO Ot Z90.49 ACQUIRED ABSENCE OF OTHER SPECIFIED PART 03/18/2017 OTHER, UNLISTED Ot N17.9 ACUTE KIDNEY FAILURE, UNSPECIFIED Procedures Code Description Performed By Performed On 37.22 LEFT HEART CARDIAC CATH 02/18/2013 37.61 PULSATION BALLOON IMPLAN 02/18/2013 37.78 INSERTION OF TEMPORARY TRANS PACEMAKER S 02/18/2013 88.42 CONTRAST AORTOGRAM 02/18/2013 88.47 CONTR ABD ARTERIOGRM NEC 02/18/2013 88.53 LT HEART ANGIOCARDIOGRAM 02/18/2013 88.56 CORONAR ARTERIOGR-2 CATH 02/18/2013 [id number] REPOSITION LEFT UPPER FEMUR WITH INT FIX 02/02/2017 [id number] REPOSITION LEFT UPPER FEMUR WITH INTRAME 02/02/2017 Results Test Result Range Serum or plasma renal function panel (Na, K, Cl, CO2, BUN, Cr, glucose,Ca, phos , alb) - 06/18/16 14:06 Serum or plasma sodium measurement (moles/volume) 138 mmol/L 135-145 Serum or plasma potassium measurement (moles/volume) 3.4 mmol/L 3.6-5.0 Serum or plasma chloride measurement (moles/volume) 106 mmol/L 98-107 Carbon dioxide 29 mmol/L 21-32 Serum or plasma anion gap determination (moles/volume) 3 mmol/L 5-14 Serum or plasma urea nitrogen measurement (mass/volume) 12 mg/dL 7-18 Serum or plasma creatinine measurement (mass/volume) 0.89 mg/dL 0.60-1.30 Serum or plasma urea nitrogen/creatinine mass ratio 13 NRG Serum or plasma creatinine measurement with calculation of estimated glomerular filtration rate > NRG Serum or plasma glucose measurement (mass/volume) 281 mg/dL 70-105 Serum or plasma calcium measurement (mass/volume) 8.2 mg/dL 8.5-10.1 Serum or plasma albumin measurement (mass/volume) 2.8 g/dL 3.2-4.5 Serum or plasma phosphate measurement (mass/volume) 3.0 mg/dL 2.3-4.7 Complete urinalysis with reflex to culture - 06/22/16 10:00 Urine color determination YELLOW NRG Urine clarity determination CLEAR NRG Urine pH measurement by test strip 8 5-9 Specific gravity of urine by test strip 1.015 1.016- 1.022 Urine protein assay by test strip, semi-quantitative 1+ NEGATIVE Urine glucose detection by automated test strip 3+ NEGATIVE Erythrocytes detection in urine sediment by light microscopy NEGATIVE NEGATIVE Urine ketones detection by automated test strip NEGATIVE NEGATIVE Urine nitrite detection by test strip NEGATIVE NEGATIVE Urine total bilirubin detection by test strip NEGATIVE NEGATIVE Urine urobilinogen measurement by automated test strip (mass/volume) NORMAL NORMAL Urine leukocyte esterase detection by dipstick NEGATIVE NEGATIVE Automated urine sediment erythrocyte count by microscopy (number/high power field) NONE NRG Automated urine sediment leukocyte count by microscopy (number/high power field ) NONE NRG Bacteria detection in urine sediment by light microscopy NONE NRG Squamous epithelial cells detection in urine sediment by light microscopy 0-2 NRG Crystals detection in urine sediment by light microscopy NONE NRG Casts detection in urine sediment by light microscopy NONE NRG Mucus detection in urine sediment by light microscopy NEGATIVE NRG Complete urinalysis with reflex to culture NO NRG Complete blood count (CBC) with automated white blood cell (WBC) differential - 06/22/16 19:00 Blood leukocytes automated count (number/volume) 9.1 10*3/uL 4.3-11.0 Blood erythrocytes automated count (number/volume) 4.16 10*6/uL 4.35-5.85 Venous blood hemoglobin measurement (mass/volume) 11.9 g/dL 13.3-17.7 Blood hematocrit (volume fraction) 36 % 40-54 Automated erythrocyte mean corpuscular volume 86 [foz_us] 80-99 Automated erythrocyte mean corpuscular hemoglobin (mass per erythrocyte) 29 pg 25-34 Automated erythrocyte mean corpuscular hemoglobin concentration measurement ( mass/volume) 33 g/dL 32-36 Automated erythrocyte distribution width ratio 13.3 % 10.0-14.5 Automated blood platelet count (count/volume) 202 10*3/uL 130-400 Automated blood platelet mean volume measurement 12.0 [foz_us] 7.4-10.4 Automated blood neutrophils/100 leukocytes 83 % 42-75 Automated blood lymphocytes/100 leukocytes 9 % 12-44 Blood monocytes/100 leukocytes 7 % 0-12 Automated blood eosinophils/100 leukocytes 1 % 0-10 Automated blood basophils/100 leukocytes 0 % 0-10 Blood neutrophils automated count (number/volume) 7.5 10*3 1.8-7.8 Blood lymphocytes automated count (number/volume) 0.8 10*3 1.0-4.0 Blood monocytes automated count (number/volume) 0.7 10*3 0.0-1.0 Automated eosinophil count 0.1 10*3/uL 0.0-0.3 Automated blood basophil count (count/volume) 0.0 10*3/uL 0.0-0.1 PT panel in platelet poor plasma by coagulation assay - 06/22/16 19:00 Prothrombin time (PT) in platelet poor plasma by coagulation assay 13.5 s 12.2-14.7 INR in platelet poor plasma or blood by coagulation assay 1.1 0.8-1.4 Activated partial thromboplastin time (aPTT) in platelet poor plasma bycoagulation assay - 06/22/16 19:00 Activated partial thromboplastin time (aPTT) in platelet poor plasma bycoagulation assay 28 s 24-35 Comprehensive metabolic panel - 06/22/16 19:00 Serum or plasma sodium measurement (moles/volume) 141 mmol/L 135-145 Serum or plasma potassium measurement (moles/volume) 3.8 mmol/L 3.6-5.0 Serum or plasma chloride measurement (moles/volume) 109 mmol/L 98-107 Carbon dioxide 22 mmol/L 21-32 Serum or plasma anion gap determination (moles/volume) 10 mmol/L 5-14 Serum or plasma urea nitrogen measurement (mass/volume) 13 mg/dL 7-18 Serum or plasma creatinine measurement (mass/volume) 0.99 mg/dL 0.60-1.30 Serum or plasma urea nitrogen/creatinine mass ratio 13 NRG Serum or plasma creatinine measurement with calculation of estimated glomerular filtration rate > NRG Serum or plasma glucose measurement (mass/volume) 237 mg/dL 70-105 Serum or plasma calcium measurement (mass/volume) 8.1 mg/dL 8.5-10.1 Serum or plasma total bilirubin measurement (mass/volume) 0.6 mg/dL 0.1-1.0 Serum or plasma alkaline phosphatase measurement (enzymatic activity/volume) 87 U/L 40-136 Serum or plasma aspartate aminotransferase measurement (enzymatic activity/ volume) 29 U/L 5-34 Serum or plasma alanine aminotransferase measurement (enzymatic activity/volume ) 45 U/L 0-55 Serum or plasma protein measurement (mass/volume) 5.1 g/dL 6.4-8.2 Serum or plasma albumin measurement (mass/volume) 3.0 g/dL 3.2-4.5 Magnesium - 06/22/16 19:00 Magnesium 1.8 mg/dL 1.8-2.4 Serum or plasma troponin i.cardiac measurement (mass/volume) - 06/22/16 19:00 Serum or plasma troponin i.cardiac measurement (mass/volume) < ng/ mL <0.30 Myoglobin, serum - 06/22/16 19:00 Myoglobin, serum 48.7 ng/mL 10.0-92.0 Serum or plasma troponin i.cardiac measurement (mass/volume) - 06/23/16 01:20 Serum or plasma troponin i.cardiac measurement (mass/volume) < ng/ mL <0.30 Complete blood count (CBC) with automated white blood cell (WBC) differential - 06/23/16 06:00 Blood leukocytes automated count (number/volume) 6.6 10*3/uL 4.3-11.0 Blood erythrocytes automated count (number/volume) 4.14 10*6/uL 4.35-5.85 Venous blood hemoglobin measurement (mass/volume) 11.8 g/dL 13.3-17.7 Blood hematocrit (volume fraction) 35 % 40-54 Automated erythrocyte mean corpuscular volume 86 [foz_us] 80-99 Automated erythrocyte mean corpuscular hemoglobin (mass per erythrocyte) 29 pg 25-34 Automated erythrocyte mean corpuscular hemoglobin concentration measurement ( mass/volume) 33 g/dL 32-36 Automated erythrocyte distribution width ratio 13.2 % 10.0-14.5 Automated blood platelet count (count/volume) 189 10*3/uL 130-400 Automated blood platelet mean volume measurement 11.2 [foz_us] 7.4-10.4 Automated blood neutrophils/100 leukocytes 70 % 42-75 Automated blood lymphocytes/100 leukocytes 17 % 12-44 Blood monocytes/100 leukocytes 11 % 0-12 Automated blood eosinophils/100 leukocytes 1 % 0-10 Automated blood basophils/100 leukocytes 0 % 0-10 Blood neutrophils automated count (number/volume) 4.6 10*3 1.8-7.8 Blood lymphocytes automated count (number/volume) 1.2 10*3 1.0-4.0 Blood monocytes automated count (number/volume) 0.7 10*3 0.0-1.0 Automated eosinophil count 0.1 10*3/uL 0.0-0.3 Automated blood basophil count (count/volume) 0.0 10*3/uL 0.0-0.1 Comprehensive metabolic panel - 06/23/16 06:00 Serum or plasma sodium measurement (moles/volume) 139 mmol/L 135-145 Serum or plasma potassium measurement (moles/volume) 3.9 mmol/L 3.6-5.0 Serum or plasma chloride measurement (moles/volume) 111 mmol/L 98-107 Carbon dioxide 18 mmol/L 21-32 Serum or plasma anion gap determination (moles/volume) 10 mmol/L 5-14 Serum or plasma urea nitrogen measurement (mass/volume) 10 mg/dL 7-18 Serum or plasma creatinine measurement (mass/volume) 0.78 mg/dL 0.60-1.30 Serum or plasma urea nitrogen/creatinine mass ratio 13 NRG Serum or plasma creatinine measurement with calculation of estimated glomerular filtration rate > NRG Serum or plasma glucose measurement (mass/volume) 125 mg/dL 70-105 Serum or plasma calcium measurement (mass/volume) 8.4 mg/dL 8.5-10.1 Serum or plasma total bilirubin measurement (mass/volume) 0.8 mg/dL 0.1-1.0 Serum or plasma alkaline phosphatase measurement (enzymatic activity/volume) 85 U/L 40-136 Serum or plasma aspartate aminotransferase measurement (enzymatic activity/ volume) 27 U/L 5-34 Serum or plasma alanine aminotransferase measurement (enzymatic activity/volume ) 41 U/L 0-55 Serum or plasma protein measurement (mass/volume) 5.2 g/dL 6.4-8.2 Serum or plasma albumin measurement (mass/volume) 3.1 g/dL 3.2-4.5 Complete urinalysis with reflex to culture - 08/30/16 19:46 Urine color determination YELLOW NRG Urine clarity determination SLIGHTLY CLOUDY NRG Urine pH measurement by test strip 5 5-9 Specific gravity of urine by test strip 1.025 1.016- 1.022 Urine protein assay by test strip, semi-quantitative 1+ NEGATIVE Urine glucose detection by automated test strip 1+ NEGATIVE Erythrocytes detection in urine sediment by light microscopy 5+ NEGATIVE Urine ketones detection by automated test strip NEGATIVE NEGATIVE Urine nitrite detection by test strip NEGATIVE NEGATIVE Urine total bilirubin detection by test strip NEGATIVE NEGATIVE Urine urobilinogen measurement by automated test strip (mass/volume) 1 mg/dL NORMAL Urine leukocyte esterase detection by dipstick 3+ NEGATIVE Automated urine sediment erythrocyte count by microscopy (number/high power field) > [HPF] NRG Automated urine sediment leukocyte count by microscopy (number/high power field ) [HPF] NRG Bacteria detection in urine sediment by light microscopy FEW NRG Crystals detection in urine sediment by light microscopy NONE NRG Casts detection in urine sediment by light microscopy NONE NRG Mucus detection in urine sediment by light microscopy SMALL NRG Complete urinalysis with reflex to culture YES NRG Bacterial urine culture - 08/30/16 19:46 Bacterial urine culture [id number] NRG COLONY COUNT >100,000/ML NRG FTX;REPORTABLE SENSITIVITY REPORTED 09/01/16 10:15 NRG Bacterial susceptibility panel - 08/30/16 19:46 Gentamicin susceptibility test by minimum inhibitory concentration S NRG Vancomycin susceptibility test by minimum inhibitory concentration 2 NRG Levofloxacin susceptibility test by minimum inhibitory concentration 1 NRG Tetracycline susceptibility test by minimum inhibitory concentration >= NRG Ampicillin susceptibility test by minimum inhibitory concentration < = NRG Nitrofurantoin susceptibility test by minimum inhibitory concentration <= NRG Linezolid susceptibility test by minimum inhibitory concentration 2 NRG Methicillin resistant Staphylococcus aureus (MRSA) screening culture - 02:40 Methicillin resistant Staphylococcus aureus (MRSA) screening culture NEG NRG Complete blood count (CBC) with automated white blood cell (WBC) differential - 02/02/17 05:12 Blood leukocytes automated count (number/volume) 9.3 10*3/uL 4.3-11.0 Blood erythrocytes automated count (number/volume) 4.18 10*6/uL 4.35-5.85 Venous blood hemoglobin measurement (mass/volume) 11.5 g/dL 13.3-17.7 Blood hematocrit (volume fraction) 35 % 40-54 Automated erythrocyte mean corpuscular volume 84 [foz_us] 80-99 Automated erythrocyte mean corpuscular hemoglobin (mass per erythrocyte) 28 pg 25-34 Automated erythrocyte mean corpuscular hemoglobin concentration measurement ( mass/volume) 33 g/dL 32-36 Automated erythrocyte distribution width ratio 13.2 % 10.0-14.5 Automated blood platelet count (count/volume) 140 10*3/uL 130-400 Automated blood platelet mean volume measurement 12.2 [foz_us] 7.4-10.4 Automated blood neutrophils/100 leukocytes 84 % 42-75 Automated blood lymphocytes/100 leukocytes 5 % 12-44 Blood monocytes/100 leukocytes 10 % 0-12 Automated blood eosinophils/100 leukocytes 0 % 0-10 Automated blood basophils/100 leukocytes 0 % 0-10 Blood neutrophils automated count (number/volume) 7.9 10*3 1.8-7.8 Blood lymphocytes automated count (number/volume) 0.5 10*3 1.0-4.0 Blood monocytes automated count (number/volume) 0.9 10*3 0.0-1.0 Automated eosinophil count 0.0 10*3/uL 0.0-0.3 Automated blood basophil count (count/volume) 0.0 10*3/uL 0.0-0.1 PT panel in platelet poor plasma by coagulation assay - 02/02/17 05:12 Prothrombin time (PT) in platelet poor plasma by coagulation assay 13.9 s 12.2-14.7 INR in platelet poor plasma or blood by coagulation assay 1.1 0.8-1.4 Activated partial thromboplastin time (aPTT) in platelet poor plasma bycoagulation assay - 02/02/17 05:12 Activated partial thromboplastin time (aPTT) in platelet poor plasma bycoagulation assay 28 s 24-35 Comprehensive metabolic panel - 02/02/17 05:12 Serum or plasma sodium measurement (moles/volume) 142 mmol/L 135-145 Serum or plasma potassium measurement (moles/volume) 3.6 mmol/L 3.6-5.0 Serum or plasma chloride measurement (moles/volume) 111 mmol/L 98-107 Carbon dioxide 21 mmol/L 21-32 Serum or plasma anion gap determination (moles/volume) 10 mmol/L 5-14 Serum or plasma urea nitrogen measurement (mass/volume) 17 mg/dL 7-18 Serum or plasma creatinine measurement (mass/volume) 0.83 mg/dL 0.60-1.30 Serum or plasma urea nitrogen/creatinine mass ratio 20 0 -20 Serum or plasma creatinine measurement with calculation of estimated glomerular filtration rate > NRG Serum or plasma glucose measurement (mass/volume) 348 mg/dL 70-105 Serum or plasma calcium measurement (mass/volume) 8.8 mg/dL 8.5-10.1 Serum or plasma total bilirubin measurement (mass/volume) 1.2 mg/dL 0.1-1.0 Serum or plasma alkaline phosphatase measurement (enzymatic activity/volume) 99 U/L 40-136 Serum or plasma aspartate aminotransferase measurement (enzymatic activity/ volume) 12 U/L 5-34 Serum or plasma alanine aminotransferase measurement (enzymatic activity/volume ) 12 U/L 0-55 Serum or plasma protein measurement (mass/volume) 5.6 g/dL 6.4-8.2 Serum or plasma albumin measurement (mass/volume) 3.4 g/dL 3.2-4.5 Blood manual differential performed detection - 02/02/17 05:12 Blood monocytes/100 leukocytes 10 % NRG Manual blood segmented neutrophils/100 leukocytes 81 % NRG Manual blood lymphocytes/100 leukocytes 9 % NRG Blood erythrocyte morphology finding identification NORMAL NRG RED CELLS LEUKO REDUCED AS1 - 02/02/17 05:12 RED CELLS LEUKO REDUCED AS1 TRANSFUSED 02/04/17 0802 NRG Blood type T Indirect antibody screen panel - 02/02/17 05:12 ABO+Rh group OP NRG Transfusion band number [id number] NRG Blood group antibody screen NEGATIVE NRG Capillary blood glucose measurement by glucometer (mass/volume) - 02/02/17 11: 30 Capillary blood glucose measurement by glucometer (mass/volume) 282 mg/dL 70-110 Capillary blood glucose measurement by glucometer (mass/volume) - 02/02/17 16: 12 Capillary blood glucose measurement by glucometer (mass/volume) 151 mg/dL 70-110 Capillary blood glucose measurement by glucometer (mass/volume) - 02/02/17 21: 00 Capillary blood glucose measurement by glucometer (mass/volume) 238 mg/dL 70-110 Complete blood count (CBC) with automated white blood cell (WBC) differential - 02/03/17 04:28 Blood leukocytes automated count (number/volume) 9.6 10*3/uL 4.3-11.0 Blood erythrocytes automated count (number/volume) 2.86 10*6/uL 4.35-5.85 Venous blood hemoglobin measurement (mass/volume) 8.0 g/dL 13.3-17.7 Blood hematocrit (volume fraction) 25 % 40-54 Automated erythrocyte mean corpuscular volume 87 [foz_us] 80-99 Automated erythrocyte mean corpuscular hemoglobin (mass per erythrocyte) 28 pg 25-34 Automated erythrocyte mean corpuscular hemoglobin concentration measurement ( mass/volume) 32 g/dL 32-36 Automated erythrocyte distribution width ratio 13.5 % 10.0-14.5 Automated blood platelet count (count/volume) 90 10*3/uL 130-400 Automated blood platelet mean volume measurement 12.1 [foz_us] 7.4-10.4 Automated blood neutrophils/100 leukocytes 74 % 42-75 Automated blood lymphocytes/100 leukocytes 13 % 12-44 Blood monocytes/100 leukocytes 13 % 0-12 Automated blood eosinophils/100 leukocytes 0 % 0-10 Automated blood basophils/100 leukocytes 0 % 0-10 Blood neutrophils automated count (number/volume) 7.1 10*3 1.8-7.8 Blood lymphocytes automated count (number/volume) 1.2 10*3 1.0-4.0 Blood monocytes automated count (number/volume) 1.2 10*3 0.0-1.0 Automated eosinophil count 0.0 10*3/uL 0.0-0.3 Automated blood basophil count (count/volume) 0.0 10*3/uL 0.0-0.1 Comprehensive metabolic panel - 02/03/17 04:28 Serum or plasma sodium measurement (moles/volume) 142 mmol/L 135-145 Serum or plasma potassium measurement (moles/volume) 4.2 mmol/L 3.6-5.0 Serum or plasma chloride measurement (moles/volume) 113 mmol/L 98-107 Carbon dioxide 19 mmol/L 21-32 Serum or plasma anion gap determination (moles/volume) 10 mmol/L 5-14 Serum or plasma urea nitrogen measurement (mass/volume) 19 mg/dL 7-18 Serum or plasma creatinine measurement (mass/volume) 1.16 mg/dL 0.60-1.30 Serum or plasma urea nitrogen/creatinine mass ratio 16 0 -20 Serum or plasma creatinine measurement with calculation of estimated glomerular filtration rate 60 NRG Serum or plasma glucose measurement (mass/volume) 230 mg/dL 70-105 Serum or plasma calcium measurement (mass/volume) 8.1 mg/dL 8.5-10.1 Serum or plasma total bilirubin measurement (mass/volume) 0.8 mg/dL 0.1-1.0 Serum or plasma alkaline phosphatase measurement (enzymatic activity/volume) 73 U/L 40-136 Serum or plasma aspartate aminotransferase measurement (enzymatic activity/ volume) 11 U/L 5-34 Serum or plasma alanine aminotransferase measurement (enzymatic activity/volume ) 11 U/L 0-55 Serum or plasma protein measurement (mass/volume) 4.5 g/dL 6.4-8.2 Serum or plasma albumin measurement (mass/volume) 2.8 g/dL 3.2-4.5 IRON TEST - 02/03/17 04:28 Serum or plasma iron measurement (mass/volume) 16 % 40- 180 Capillary blood glucose measurement by glucometer (mass/volume) - 02/03/17 11: 01 Capillary blood glucose measurement by glucometer (mass/volume) 178 mg/dL 70-110 Capillary blood glucose measurement by glucometer (mass/volume) - 02/03/17 16: 16 Capillary blood glucose measurement by glucometer (mass/volume) 223 mg/dL 70-110 Capillary blood glucose measurement by glucometer (mass/volume) - 02/03/17 21: 00 Capillary blood glucose measurement by glucometer (mass/volume) 197 mg/dL 70-110 Complete blood count (CBC) with automated white blood cell (WBC) differential - 02/04/17 05:18 Blood leukocytes automated count (number/volume) 7.2 10*3/uL 4.3-11.0 Blood erythrocytes automated count (number/volume) 2.37 10*6/uL 4.35-5.85 Venous blood hemoglobin measurement (mass/volume) 6.6 g/dL 13.3-17.7 Blood hematocrit (volume fraction) 21 % 40-54 Automated erythrocyte mean corpuscular volume 88 [foz_us] 80-99 Automated erythrocyte mean corpuscular hemoglobin (mass per erythrocyte) 28 pg 25-34 Automated erythrocyte mean corpuscular hemoglobin concentration measurement ( mass/volume) 32 g/dL 32-36 Automated erythrocyte distribution width ratio 13.7 % 10.0-14.5 Automated blood platelet count (count/volume) 99 10*3/uL 130-400 Automated blood platelet mean volume measurement 12.3 [foz_us] 7.4-10.4 Automated blood neutrophils/100 leukocytes 73 % 42-75 Automated blood lymphocytes/100 leukocytes 12 % 12-44 Blood monocytes/100 leukocytes 14 % 0-12 Automated blood eosinophils/100 leukocytes 0 % 0-10 Automated blood basophils/100 leukocytes 0 % 0-10 Blood neutrophils automated count (number/volume) 5.3 10*3 1.8-7.8 Blood lymphocytes automated count (number/volume) 0.9 10*3 1.0-4.0 Blood monocytes automated count (number/volume) 1.0 10*3 0.0-1.0 Automated eosinophil count 0.0 10*3/uL 0.0-0.3 Automated blood basophil count (count/volume) 0.0 10*3/uL 0.0-0.1 Comprehensive metabolic panel - 02/04/17 05:18 Serum or plasma sodium measurement (moles/volume) 145 mmol/L 135-145 Serum or plasma potassium measurement (moles/volume) 3.8 mmol/L 3.6-5.0 Serum or plasma chloride measurement (moles/volume) 116 mmol/L 98-107 Carbon dioxide 23 mmol/L 21-32 Serum or plasma anion gap determination (moles/volume) 6 mmol/L 5-14 Serum or plasma urea nitrogen measurement (mass/volume) 25 mg/dL 7-18 Serum or plasma creatinine measurement (mass/volume) 1.28 mg/dL 0.60-1.30 Serum or plasma urea nitrogen/creatinine mass ratio 20 0 -20 Serum or plasma creatinine measurement with calculation of estimated glomerular filtration rate 54 NRG Serum or plasma glucose measurement (mass/volume) 131 mg/dL 70-105 Serum or plasma calcium measurement (mass/volume) 8.4 mg/dL 8.5-10.1 Serum or plasma total bilirubin measurement (mass/volume) 0.6 mg/dL 0.1-1.0 Serum or plasma alkaline phosphatase measurement (enzymatic activity/volume) 65 U/L 40-136 Serum or plasma aspartate aminotransferase measurement (enzymatic activity/ volume) 14 U/L 5-34 Serum or plasma alanine aminotransferase measurement (enzymatic activity/volume ) 10 U/L 0-55 Serum or plasma protein measurement (mass/volume) 4.5 g/dL 6.4-8.2 Serum or plasma albumin measurement (mass/volume) 2.6 g/dL 3.2-4.5 Capillary blood glucose measurement by glucometer (mass/volume) - 02/04/17 05: 26 Capillary blood glucose measurement by glucometer (mass/volume) 125 mg/dL 70-110 Capillary blood glucose measurement by glucometer (mass/volume) - 02/04/17 10: 26 Capillary blood glucose measurement by glucometer (mass/volume) 208 mg/dL 70-110 Capillary blood glucose measurement by glucometer (mass/volume) - 02/04/17 15: 51 Capillary blood glucose measurement by glucometer (mass/volume) 119 mg/dL 70-110 Whole blood hemoglobin and hematocrit panel - 02/04/17 16:15 Venous blood hemoglobin measurement (mass/volume) 9.3 g/dL 13.3-17.7 Blood hematocrit (volume fraction) 28 % 40-54 Capillary blood glucose measurement by glucometer (mass/volume) - 02/04/17 20: 45 Capillary blood glucose measurement by glucometer (mass/volume) 117 mg/dL 70-110 Complete blood count (CBC) with automated white blood cell (WBC) differential - 02/05/17 05:05 Blood leukocytes automated count (number/volume) 8.0 10*3/uL 4.3-11.0 Blood erythrocytes automated count (number/volume) 3.23 10*6/uL 4.35-5.85 Venous blood hemoglobin measurement (mass/volume) 9.2 g/dL 13.3-17.7 Blood hematocrit (volume fraction) 28 % 40-54 Automated erythrocyte mean corpuscular volume 88 [foz_us] 80-99 Automated erythrocyte mean corpuscular hemoglobin (mass per erythrocyte) 29 pg 25-34 Automated erythrocyte mean corpuscular hemoglobin concentration measurement ( mass/volume) 33 g/dL 32-36 Automated erythrocyte distribution width ratio 14.8 % 10.0-14.5 Automated blood platelet count (count/volume) 106 10*3/uL 130-400 Automated blood platelet mean volume measurement 11.6 [foz_us] 7.4-10.4 Automated blood neutrophils/100 leukocytes 75 % 42-75 Automated blood lymphocytes/100 leukocytes 10 % 12-44 Blood monocytes/100 leukocytes 13 % 0-12 Automated blood eosinophils/100 leukocytes 2 % 0-10 Automated blood basophils/100 leukocytes 0 % 0-10 Blood neutrophils automated count (number/volume) 6.0 10*3 1.8-7.8 Blood lymphocytes automated count (number/volume) 0.8 10*3 1.0-4.0 Blood monocytes automated count (number/volume) 1.0 10*3 0.0-1.0 Automated eosinophil count 0.2 10*3/uL 0.0-0.3 Automated blood basophil count (count/volume) 0.0 10*3/uL 0.0-0.1 Whole blood basic metabolic panel - 02/05/17 05:05 Serum or plasma sodium measurement (moles/volume) 146 mmol/L 135-145 Serum or plasma potassium measurement (moles/volume) 3.6 mmol/L 3.6-5.0 Serum or plasma chloride measurement (moles/volume) 115 mmol/L 98-107 Carbon dioxide 20 mmol/L 21-32 Serum or plasma anion gap determination (moles/volume) 11 mmol/L 5-14 Serum or plasma urea nitrogen measurement (mass/volume) 25 mg/dL 7-18 Serum or plasma creatinine measurement (mass/volume) 1.02 mg/dL 0.60-1.30 Serum or plasma urea nitrogen/creatinine mass ratio 25 0 -20 Serum or plasma creatinine measurement with calculation of estimated glomerular filtration rate > NRG Serum or plasma glucose measurement (mass/volume) 121 mg/dL 70-105 Serum or plasma calcium measurement (mass/volume) 8.3 mg/dL 8.5-10.1 Capillary blood glucose measurement by glucometer (mass/volume) - 02/05/17 05: 26 Capillary blood glucose measurement by glucometer (mass/volume) 117 mg/dL 70-110 Capillary blood glucose measurement by glucometer (mass/volume) - 02/05/17 11: 11 Capillary blood glucose measurement by glucometer (mass/volume) 168 mg/dL 70-110 Encounters ACCT No. Visit Date/Time Discharge Status Pt. Type Provider Facility Loc./Unit Complaint [id number] 02/02/2017 00:00:00 02/05/2017 15:30:00 DIS Inpatient MEGAN BEACH, MAU Alejo [facility] 4TH L HIP FRACTURE;DEMENTIA [id number] 09/04/2016 14:00:00 09/04/2016 15:47:00 DIS Emergency DAMIEN ESPANA MD [facility] ER LEFT HAND TINGLING [id number] 08/30/2016 18:38:00 08/30/2016 20:37:00 DIS Emergency CARLOS ROBERTS APRN [facility] ER BLOOD IN URINE [id number] 2016 20:23:00 06/24/2016 18:55:00 DIS Inpatient GLENNY BEACH, ABDULLAHI Chinchilla [facility] 4TH CVA W L SIDE WEAKNESS; DEMENTIA [id number] 06/18/2016 14:00:00 06/18/2016 23:59:59 CLS Outpatient OTHER, UNLISTED [facility] LAB OLGA [id number] 03/04/2016 11:55:00 03/04/2016 23:59:59 CLS Outpatient MARY KEENE DO [facility] RAD ABDOMINAL PAIN [id number] 09/13/2014 07:33:00 09/13/2014 23:59:59 CLS Outpatient MARY KEENE DO [facility] RAD COUGH [id number] 02/18/2013 17:35:00 02/18/2013 18:35:00 DIS Inpatient BRE BEACH FACC, CULLEN MCKEON CCDS [facility] ICU CP [id number] 11/20/2017 18:38:00 ACT Emergency DORIAN MELANI K [facility] ER HYPOGLYCEMIA [id number] 07/21/2012 05:11:00 Document Registration [id number] 07/10/2012 20:11:00 Document Registration [id number] 04/22/2012 20:04:00 Document Registration [id number] 09/22/2014 07:08:22 ACT Document Registration
[2017-11-20] MEDS ORDERED: RT-ALBUTEROL/IPRATROPIUM 3 ML (DUONEB) VIAL INH ONE (19:00)
[2017-11-20 19:03] LABS: BASOPHILS % (AUTO) 0 % (0-10); EOSINOPHILS % (AUTO) 0 % (0-10); HEMATOCRIT 33 % (40-54); HEMOGLOBIN 11.2 G/DL (13.3-17.7); LYMPHOCYTES # (AUTO) 0.5 X 10^3 (1.0-4.0); LYMPHOCYTES % (AUTO) 6 % (12-44); MEAN CORPUSCULAR HEMOGLOBIN 30 PG (25-34); MEAN CORPUSCULAR HGB CONC 34 G/DL (32-36); MEAN CORPUSCULAR VOLUME 86 FL (80-99); MEAN PLATELET VOLUME 10.8 FL (7.4-10.4); MONOCYTES # (AUTO) 0.4 X 10^3 (0.0-1.0); MONOCYTES % (AUTO) 4 % (0-12); NEUTROPHILS # (AUTO) 8.5 X 10^3 (1.8-7.8); NEUTROPHILS % (AUTO) 90 % (42-75); PLATELET COUNT 168 10^3/uL (130-400); RED CELL DISTRIBUTION WIDTH 13.4 % (10.0-14.5); WHITE BLOOD COUNT 9.5 10^3/uL (4.3-11.0)
[2017-11-20 19:23] LABS: BAND NEUTROPHILS 16 %; BASOPHILS % (MANUAL) 0 %; ELLIPT/OVALOCYTES SLIGHT; EOSINOPHILS % (MANUAL) 0 %; LYMPHOCYTES % (MANUAL) 6 %; MONOCYTES % (MANUAL) 4 %; NEUTROPHILS % (MANUAL) 74 %; PLATELET CLUMPS SLIGHT; POIKILOCYTOSIS MODERATE; TOXIC GRANULATION/VACUOLAZATIO 1+
[2017-11-20 19:24] LABS: ACANTHOCYTES MODERATE; ROULEAUX MOD
[2017-11-20 19:39] LABS: BUN/CREATININE RATIO 17; CARBON DIOXIDE 26 MMOL/L (21-32); CHLORIDE 104 MMOL/L (98-107); CREATININE SERUM 0.88 MG/DL (0.60-1.30); POTASSIUM 2.8 MMOL/L (3.6-5.0); SODIUM 141 MMOL/L (135-145)
[2017-11-20 19:40] LABS: ALANINE AMINOTRANSFERASE 22 U/L (0-55); ALBUMIN 2.9 GM/DL (3.2-4.5); ALKALINE PHOSPHATASE 123 U/L (40-136); AMYLASE 27 U/L (25-125); CALCIUM 8.1 MG/DL (8.5-10.1); GFR ESTIMATED > 60; GLUCOSE 105 MG/DL (70-105); LIPASE 9 U/L (8-78); MAGNESIUM 1.4 MG/DL (1.8-2.4); TOTAL PROTEIN 5.2 GM/DL (6.4-8.2)
--- NOTE | 2017-11-20 19:43 | ED General ---
General Chief Complaint: Glucose Problems Stated Complaint: HYPOGLYCEMIA Nursing Triage Note: BROUGHT IN BY [facility] FOR LOW BLOOD GLUCOSE. D50 GIVEN RIDES ATTENDANT. Nursing Sepsis Screen: No Definite Risk Source of Information: Patient, Family (granddaughter and daughter) Exam Limitations: Other (dementia) History of Present Illness Date Seen by Provider: Nov 20, 2017 Time Seen by Provider: 18:58 Initial Comments 87 yo male patient presents to the ED via [facility] with c/o hypoglycemia. patient was noted to have a BS of 34 by EMS. patient given D50W with elevation of his BS to 200. Granddaughter reports patient is now back to baseline. 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 Timing/Duration: 1/2 Hour, Gone Now Modifying Factors: improves with Medication (improved with D50W) Allergies and Home Medications Allergies Coded Allergies: Cephalosporins (Unverified Allergy, Mild, 08/31/06) Penicillins (Unverified Allergy, Mild, 08/31/06) Home Medications Acetaminophen 325 Mg Tablet, 0 MG PO Q6H PRN for Temp over 100 F or Mild Pain Prescribed by: HITESH MASON on 02/05/17 1111 Aspirin 81 Mg Tablet.dr, 81 MG PO DAILY, (Reported) Bisacodyl 5 Mg Tablet.dr, 5 MG PO DAILY PRN for CONSTIPATION-1ST LINE Prescribed by: HITESH MASON on 02/05/17 1111 Calcium Carbonate 500 Mg Tablet, 500 MG PO DAILY, (Reported) Carvedilol 3.125 Mg Tablet, 3.125 MG PO BID, (Reported) Clopidogrel Bisulfate 75 Mg Tablet, 75 MG PO DAILY, (Reported) Glimepiride 4 Mg Tablet, 4 MG PO BID, (Reported) Hydrocodone Bit/Acetaminophen 1 Each Tablet, 1-2 TAB PO Q4H PRN for PAIN-SEVERE Prescribed by: HITESH MASON on 02/05/17 1111 Memantine HCl 10 Mg Tablet, 10 MG PO BID, (Reported) Sennosides 8.6 Mg Tablet, 8.6 MG PO BID Prescribed by: HITESH MASON on 02/05/17 1111 Patient Home Medication List Home Medication List Reviewed: Yes Review of Systems Constitutional: No fever, No malaise EENTM: no symptoms reported Respiratory: cough, No hemoptysis, No phlegm, short of breath, No wheezing Cardiovascular: No chest pain, No edema, No palpitations Gastrointestinal: no symptoms reported Genitourinary: no symptoms reported Musculoskeletal: no symptoms reported Skin: no symptoms reported Psychiatric/Neurological: No Symptoms Reported, Pre-Existing Deficit (dementia , left sided weakness from a previous CVA.) All Other Systems Reviewed Negative Unless Noted: Yes (Negative excepted noted.) Past Npcuffq-Dqlken-Tdhrzt Hx Patient Social History Alcohol Use: Denies Use Recreational Drug Use: No Smoking Status: Never a Smoker Recent Foreign Travel: No Contact w/Someone Who Travel: No Recent Infectious Disease Expo: No Recent Hopitalizations: No Immunizations Up To Date Tetanus Booster (TDap): Unknown Date of Pneumonia Vaccine: Jul 10, 2012 Date of Influenza Vaccine: Jun 16, 2016 Seasonal Allergies Seasonal Allergies: No Past Medical History Surgeries: Yes (CABG 1988; CARDIAC STENTS X 3; BILATERAL CATARACTS; LITHOTRIPSY ) Cardiac, CABG, Coronary Stent, Eye Surgery, Orthopedic, Renal Respiratory: No Cardiac: Yes Chronic Edema/Swelling, Coronary Artery Disease, High Cholesterol, Hypertension Neurological: Yes Dementia, Stroke (with residual left sided weakness. 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 YRS AGO) Family Medical History Reviewed and Corrections made ALZHEIMER'S G8 SISTER OF CANCER G8 BROTHER HEART PROBLEMS G8 BROTHER No Pertinent Family Hx Physical Exam Vital Signs Vital Signs - First Documented 11/20/17 11/20/17 18:56 18:58 Temp 97.1 Pulse 66 Resp 18 B/P (MAP) 113/61 (78) Pulse Ox 94 O2 Delivery Nasal Cannula O2 Flow Rate 3.00 Capillary Refill : Less Than 3 Seconds General Appearance: No Apparent Distress, Chronically ill, Thin HEENT: PERRL/EOMI, TMs Normal, Normal ENT Inspection, Pharynx Normal Neck: Normal Inspection, Non Tender Respiratory: No Accessory Muscle Use, No Respiratory Distress, Rales, Wheezing Cardiovascular: Regular Rate, Rhythm, No Edema, No JVD, No Murmur, Normal Peripheral Pulses Gastrointestinal: Normal Bowel Sounds, No Organomegaly, Non Tender, Soft Back: Normal Inspection Extremity: Normal Capillary Refill, No Calf Tenderness, No Pedal Edema Neurologic/Psychiatric: Alert, Oriented x3, Normal Mood/Affect Skin: Normal Color, Warm/Dry Progress/Results/Core Measures Suspected Sepsis Recent Fever Within 48 Hours: No Infection Criteria Present: None New/Unexplained Altered Menta: No Sepsis Screen: No Definite Risk Sepsis Diagnosis: SIRS Temperature:97.1 Pulse: 66 Respiratory Rate: 18 Laboratory Tests 11/20/17 18:58: White Blood Count 9.5 11/21/17 04:30: White Blood Count 10.7 Blood Pressure 113 /61 Mean: 78 Laboratory Tests 11/20/17 18:58: Creatinine 0.88, Platelet Count 168, Total Bilirubin 1.0 11/21/17 04:30: Creatinine 0.71, Platelet Count 166, Total Bilirubin 0.7 Results/Orders Lab Results Laboratory Tests Test 11/20/17 18:58 11/20/17 20:43 11/20/17 21:55 11/21/17 04:30 Range/Units White Blood Count 9.5 10.7 4.3-11.0 10^3/uL Red Blood Count 3.80 L 3.72 L 4.35-5.85 10^6/uL Hemoglobin 11.2 L 10.9 L 13.3-17.7 G/DL Hematocrit 33 L 32 L 40-54 % Mean Corpuscular Volume 86 86 80-99 FL Mean Corpuscular Hemoglobin 30 29 25-34 PG Mean Corpuscular Hemoglobin Concent 34 34 32-36 G/DL Red Cell Distribution Width 13.4 13.4 10.0-14.5 % Platelet Count 168 166 130-400 10^3/uL Mean Platelet Volume 10.8 H 11.0 H 7.4-10.4 FL Neutrophils (%) (Auto) 90 H 91 H 42-75 % Lymphocytes (%) (Auto) 6 L 6 L 12-44 % Monocytes (%) (Auto) 4 3 0-12 % Eosinophils (%) (Auto) 0 0 0-10 % Basophils (%) (Auto) 0 0 0-10 % Neutrophils # (Auto) 8.5 H 9.8 H 1.8-7.8 X 10^3 Lymphocytes # (Auto) 0.5 L 0.6 L 1.0-4.0 X 10^3 Monocytes # (Auto) 0.4 0.3 0.0-1.0 X 10^3 Eosinophils # (Auto) 0.0 0.0 0.0-0.3 10^3/uL Basophils # (Auto) 0.0 0.0 0.0-0.1 10^3/uL Neutrophils % (Manual) 74 % Lymphocytes % (Manual) 6 % Monocytes % (Manual) 4 % Eosinophils % (Manual) 0 % Basophils % (Manual) 0 % Band Neutrophils 16 % Toxic Granulation 1+ Clumped Platelets SLIGHT Poikilocytosis MODERATE Elliptocytes SLIGHT Acanthocytes MODERATE Rouleau MOD Sodium Level 141 137 135-145 MMOL/L Potassium Level 2.8 L 3.6 3.6-5.0 MMOL/L Chloride Level 104 106 98-107 MMOL/L Carbon Dioxide Level 26 25 21-32 MMOL/L Anion Gap 11 6 5-14 MMOL/L Blood Urea Nitrogen 15 14 7-18 MG/DL Creatinine 0.88 0.71 0.60-1.30 MG/DL Estimat Glomerular Filtration Rate > 60 > 60 BUN/Creatinine Ratio 17 20 Glucose Level 105 31 *L 70-105 MG/DL Calcium Level 8.1 L 8.0 L 8.5-10.1 MG/DL Magnesium Level 1.4 L 1.8-2.4 MG/DL Total Bilirubin 1.0 0.7 0.1-1.0 MG/DL Aspartate Amino Transf (AST/SGOT) 18 16 5-34 U/L Alanine Aminotransferase (ALT/SGPT) 22 19 0-55 U/L Alkaline Phosphatase 123 108 40-136 U/L Total Protein 5.2 L 5.0 L 6.4-8.2 GM/DL Albumin 2.9 L 2.7 L 3.2-4.5 GM/DL Amylase Level 27 25-125 U/L Lipase 9 8-78 U/L Glucometer 35 *L 116 H 70-110 MG/DL Test 11/21/17 04:31 11/21/17 04:59 11/21/17 11:31 11/21/17 13:56 Range/Units Glucometer 33 *L 134 H 34 *L 28 *L 70-110 MG/DL Test 11/21/17 14:53 11/21/17 15:53 Range/Units Glucometer 95 87 70-110 MG/DL My Orders Orders - FUNMILAYO GIRALDO PA Albuterol/Ipra Inhalation Soln (Duoneb I (11/20/17 19:00) Svn Sm Volume Nebulizer Rt-Rfs (11/20/17 18:48) Levofloxacin 750 Mg/150 Ml Iv (Levaquin (11/20/17 20:45) Accucheck Stat ONCE (11/20/17 20:36) Ns Iv 1000 Ml (Sodi... W/Potassium Chlor (11/20/17 20:45) Magnesium 1 Gm/100 Ml Ivpb (Magnesium Galvan (11/20/17 20:45) D50w (Emergency) Syringe (Dextrose 50% 5 (11/20/17 20:41) D50w (Emergency) Syringe (Dextrose 50% 5 (11/20/17 20:45) Medications Given in ED Vital Signs/I&O 11/21/17 11/21/17 11/21/17 11/21/17 07:50 08:30 09:00 12:03 Temp 97.8 Pulse 69 Resp 16 B/P (MAP) 142/67 (92) Pulse Ox 98 98 O2 Delivery Nasal Cannula Nasal Cannula Nasal Cannula Nasal Cannula O2 Flow Rate 2.00 4.00 4.00 2.00 11/21/17 12:30 Temp 97.8 Pulse 74 Resp 18 B/P (MAP) 167/87 (113) Pulse Ox 96 O2 Delivery Nasal Cannula O2 Flow Rate 2.00 Capillary Refill : Less Than 3 Seconds Blood Pressure Mean: 78 Diagnostic Imaging Diagonstic Imaging: Xray Plain Films/CT/US/NM/MRI: chest Comments COMPARISON: 02/01/2017. TECHNIQUE: Single view of the chest was obtained. FINDINGS: There has been development of left greater than right basilar heterogeneous opacities. No pleural effusion or pneumothorax. Heart is normal in size and status post CABG. Stable configuration of the sternal wires. IMPRESSION: New bilateral lower lobe heterogeneous airspace opacities are likely due to pneumonia or aspiration. Advise followup PA and lateral chest radiographs in 4 weeks after appropriate medical management to ensure resolution. Dictated by: Dictated on workstation # [id number] Reviewed: Reviewed by Me (radiology report reviewed by me) Departure Communication (Admissions) Time/Spoke to Admitting Phy: 20:50 Dr. Babcock graciously accepts patient to her internal medicine service for IV antibiotics, IV fluids, potassium replacement, and magnesium replacement. All laboratory findings, diagnostic study findings, and plan for admission discussed with the patient's . verbalizes understanding and agrees with the treatment plan. Patient does show improved breath sounds bilaterally following the nebulizer treatment. Dr. Rivera notified of plan for admission. Impression Primary Impression: Hypokalemia Additional Impressions: Hypomagnesemia Type II diabetes mellitus with hypoglycemia Qualified Codes: E11.649 - Type 2 diabetes mellitus with hypoglycemia without coma Disposition: ADMITTED INPATIENT Condition: Stable Admissions Decision to Admit Reason: Admit from ER (General) Decision to Admit/Date: Nov 20, 2017 Time/Decision to Admit Time: 20:50 Departure-Patient Inst. Referrals: ABDULLAHI MURRIETA MD (PCP) Primary Care Physician MARY KEENE DO (Family) Primary Care Physician FUNMILAYO GIRALDO Nov 20, 2017 19:43
--- NOTE | 2017-11-20 19:52 | Diagnostic Imaging Report ---
INDICATION: Cough. COMPARISON: 02/01/2017. TECHNIQUE: Single view of the chest was obtained. FINDINGS: There has been development of left greater than right basilar heterogeneous opacities. No pleural effusion or pneumothorax. Heart is normal in size and status post CABG. Stable configuration of the sternal wires. IMPRESSION: New bilateral lower lobe heterogeneous airspace opacities are likely due to pneumonia or aspiration. Advise followup PA and lateral chest radiographs in 4 weeks after appropriate medical management to ensure resolution. Dictated by: Dictated on workstation # [id number]
[2017-11-20] MEDS ORDERED: DEXTROSE 50% 50 ML (IMS) SYR ONE (20:41)
[2017-11-20] MEDS ORDERED: POTASSIUM CHLORIDE INJ 40 MEQ in NS IV 1000 ML 1,000 ML IV SCH (20:45)
[2017-11-20] MEDS ORDERED: MAGNESIUM 1 GM/100 ML IVPB 100 ML IV ONE (20:45)
[2017-11-20] MEDS ORDERED: LEVOFLOXACIN 750 MG/150 ML IV 150 ML IV ONE (20:45)
[2017-11-20] MEDS ORDERED: DEXTROSE 50% 50 ML (IMS) SYR IV ONE (20:45)
--- OUTSIDE RECORDS SUMMARY | 2017-11-20 21:10 | XMS REPORT | Continuity of Care Document ---
Author Author [facility] Organization [facility] Address Unknown Phone Unavailable Allergies Active Description Code Type Severity Reaction Onset Reported/Identified Relationship to Patient Clinical Status Yes Cephalosporins [id number] Drug Allergy Mild N/A 08/31/2006 Yes Penicillins [id number] Drug Allergy Mild N/A 08/31/2006 Medications There is no data. 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 02/18/2013 [place] FACC, ALI FACP [...] MD Ot 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 06/24/2016 ABDULLAHI MURRIETA MD Ot I63.9 [...] UNSPECIFIED 08/30/2016 CARLOS ROBERTS APRN Ot Z79.02 RETIREMENT (CURRENT) USE OF ANTITHROMBOTI 08/30/2016 CARLOS ROBERTS APRN Ot Z79.84 ENDOSCOPY TECH (CURRENT) USE OF ORAL HYPOGLYC 08/30/2016 CARLOS ROBERTS OPEN HEARTH DOOR LINER Ot Z79.899 OTHER RETIREMENT (CURRENT) DRUG THERAPY 08/30/2016 CARLOS ROBERTS OPEN HEARTH DOOR LINER Ot Z95.1 PRESENCE OF AORTOCORONARY BYPASS GRAFT 08/30/2016 CARLOS ROBERTS OPEN HEARTH DOOR LINER Ot Z95.5 PRESENCE OF CORONARY ANGIOPLASTY IMPLANT [...] UNSPECIFIED 09/01/2016 CARLOS ROBERTS APRN Ot Z79.02 RETIREMENT (CURRENT) USE OF ANTITHROMBOTI 09/01/2016 CARLOS ROBERTS APRN Ot Z79.84 ENDOSCOPY TECH (CURRENT) USE OF ORAL HYPOGLYC 09/01/2016 CARLOS ROBERTS APRN Ot Z79.899 OTHER RETIREMENT (CURRENT) DRUG THERAPY 09/01/2016 CARLOS ROBERTS APRN [...] MD Ot 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 09/04/2016 DAMIEN ESPANA MD Ot 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 09/04/2016 DAMIEN ESPANA MD Ot R20.2 PARESTHESIA OF SKIN 09/04/2016 DAMIEN ESPANA MD, Ot Z79.02 RETIREMENT (CURRENT) USE OF ANTITHROMBOTI 09/04/2016 DAMIEN ESPANA MD Ot Z79.84 ENDOSCOPY TECH (CURRENT) USE OF ORAL HYPOGLYC 09/04/2016 DAMIEN ESPANA MD, Ot Z79.899 OTHER RETIREMENT (CURRENT) DRUG THERAPY 09/04/2016 DAMIEN ESPANA MD [...] MD, Ot 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 09/07/2016 DAMIEN ESPANA MD Ot 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 09/07/2016 DAMIEN ESPANA MD Ot R20.2 PARESTHESIA OF SKIN 09/07/2016 DAMIEN ESPANA MD, Ot Z79.02 RETIREMENT (CURRENT) USE OF ANTITHROMBOTI 09/07/2016 DAMIEN ESPANA MD, Ot Z79.84 RETIREMENT (CURRENT) USE OF ORAL HYPOGLYC 09/07/2016 DAMIEN ESPANA MD, Ot Z79.899 OTHER RETIREMENT (CURRENT) DRUG THERAPY 09/07/2016 DAMIEN ESPANA MD [...] MD Ot 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 02/05/2017 MAU GUZMAN MD Ot N40.0 BENIGN PROSTATIC HYPERPLASIA WITHOUT LOW 02/05/2017 MAU GUZMAN MD Ot R60.0 LOCALIZED EDEMA 02/05/2017 MAU GUZMAN MD Ot S72.142A DISPLACED INTERTROCHANTERIC FRACTURE OF 02/05/2017 MAU GUZMAN MD Ot W19.XXXA UNSPECIFIED FALL, INITIAL ENCOUNTER 02/05/2017 MAU GUZMAN MD Ot Z79.84 ENDOSCOPY TECH (CURRENT) USE OF ORAL HYPOGLYC 02/05/2017 MAU [...] ANGIOCARDIOGRAM 02/18/2013 88.56 CORONAR ARTERIOGR-2 CATH 02/18/2013 [id number] REPOSITION LEFT UPPER FEMUR WITH INT FIX 02/02/2017 [id number] REPOSITION LEFT UPPER FEMUR WITH INTRAME 02/02/2017 [...] culture - 08/30/16 19:46 Bacterial urine culture [id number] NRG COLONY COUNT >100,000/ML NRG FTX;REPORTABLE SENSITIVITY [...] ABO+Rh group OP NRG Transfusion band number [id number] NRG Blood group antibody screen NEGATIVE NRG [...] measurement by glucometer (mass/volume) 168 mg/dL 70-110 Complete blood count (CBC) with automated white blood cell (WBC) differential - 11/20/17 18:58 Blood leukocytes automated count (number/volume) 9.5 10*3/uL 4.3-11.0 Blood erythrocytes automated count (number/volume) 3.80 10*6/uL 4.35-5.85 Venous blood hemoglobin measurement (mass/volume) 11.2 g/dL 13.3-17.7 Blood hematocrit (volume fraction) 33 % 40-54 Automated erythrocyte mean corpuscular volume 86 [foz_us] 80-99 Automated erythrocyte mean corpuscular hemoglobin (mass per erythrocyte) 30 pg 25-34 Automated erythrocyte mean corpuscular hemoglobin concentration measurement ( mass/volume) 34 g/dL 32-36 Automated erythrocyte distribution width ratio 13.4 % 10.0-14.5 Automated blood platelet count (count/volume) 168 10*3/uL 130-400 Automated blood platelet mean volume measurement 10.8 [foz_us] 7.4-10.4 Automated blood neutrophils/100 leukocytes 90 % 42-75 Automated blood lymphocytes/100 leukocytes 6 % 12-44 Blood monocytes/100 leukocytes 4 % 0-12 Automated blood eosinophils/100 leukocytes 0 % 0-10 Automated blood basophils/100 leukocytes 0 % 0-10 Blood neutrophils automated count (number/volume) 8.5 10*3 1.8-7.8 Blood lymphocytes automated count (number/volume) 0.5 10*3 1.0-4.0 Blood monocytes automated count (number/volume) 0.4 10*3 0.0-1.0 Automated eosinophil count 0.0 10*3/uL 0.0-0.3 Automated blood basophil count (count/volume) 0.0 10*3/uL 0.0-0.1 Blood manual differential performed detection - 11/20/17 18:58 Blood monocytes/100 leukocytes 4 % NRG Manual blood segmented neutrophils/100 leukocytes 74 % NRG Blood band neutrophils/100 leukocytes 16 % NRG Manual blood lymphocytes/100 leukocytes 6 % NRG Manual eosinophils/100 leukocytes in nose 0 % NRG Manual blood basophils/100 leukocytes 0 % NRG Blood ovalocytes detection by light microscopy SLIGHT NRG Blood toxic granules detection by light microscopy 1+ NRG Blood poikilocytosis detection by light microscopy MODERATE NRG Blood rouleaux detection by light microscopy MOD NRG Blood platelet clump detection by light microscopy SLIGHT NRG Acanthocyte detection MODERATE NRG Comprehensive metabolic panel - 11/20/17 18:58 Serum or plasma sodium measurement (moles/volume) 141 mmol/L 135-145 Serum or plasma potassium measurement (moles/volume) 2.8 mmol/L 3.6-5.0 Serum or plasma chloride measurement (moles/volume) 104 mmol/L 98-107 Carbon dioxide 26 mmol/L 21-32 Serum or plasma anion gap determination (moles/volume) 11 mmol/L 5-14 Serum or plasma urea nitrogen measurement (mass/volume) 15 mg/dL 7-18 Serum or plasma creatinine measurement (mass/volume) 0.88 mg/dL 0.60-1.30 Serum or plasma urea nitrogen/creatinine mass ratio 17 NRG Serum or plasma creatinine measurement with calculation of estimated glomerular filtration rate > NRG Serum or plasma glucose measurement (mass/volume) 105 mg/dL 70-105 Serum or plasma calcium measurement (mass/volume) 8.1 mg/dL 8.5-10.1 Serum or plasma total bilirubin measurement (mass/volume) 1.0 mg/dL 0.1-1.0 Serum or plasma alkaline phosphatase measurement (enzymatic activity/volume) 123 U/L 40-136 Serum or plasma aspartate aminotransferase measurement (enzymatic activity/ volume) 18 U/L 5-34 Serum or plasma alanine aminotransferase measurement (enzymatic activity/volume ) 22 U/L 0-55 Serum or plasma protein measurement (mass/volume) 5.2 g/dL 6.4-8.2 Serum or plasma albumin measurement (mass/volume) 2.9 g/dL 3.2-4.5 Magnesium - 11/20/17 18:58 Magnesium 1.4 mg/dL 1.8-2.4 Serum or plasma amylase measurement (enzymatic activity/volume) - 11/20/17 18: 58 Serum or plasma amylase measurement (enzymatic activity/volume) 27 U /L 25-125 Lipase - 11/20/17 18:58 Lipase 9 U/L 8-78 Capillary blood glucose measurement by glucometer (mass/volume) - 11/20/17 20: 43 Capillary blood glucose measurement by glucometer (mass/volume) 35 mg/dL 70-110 Encounters ACCT No. Visit Date/Time Discharge Status Pt. Type Provider Facility Loc./Unit Complaint [id number] 02/02/2017 00:00:00 02/05/2017 15:30:00 DIS Inpatient MEGAN BEACH, MAU Alejo [facility] 4TH L HIP FRACTURE;DEMENTIA [id number] 09/04/2016 14:00:00 09/04/2016 15:47:00 DIS Emergency DAMIEN ESPANA MD [facility] ER LEFT HAND TINGLING [id number] 08/30/2016 18:38:00 08/30/2016 20:37:00 DIS Emergency CARLOS ROBERTS APRN [facility] ER BLOOD IN URINE [id number] 2016 20:23:00 06/24/2016 18:55:00 DIS Inpatient GLENNY BEACH, ABDULLAHI Chinchilla [facility] 4TH CVA W L SIDE WEAKNESS; DEMENTIA [id number] 06/18/2016 14:00:00 06/18/2016 23:59:59 CLS Outpatient OTHER, UNLISTED [facility] LAB OLGA [id number] 03/04/2016 11:55:00 03/04/2016 23:59:59 CLS Outpatient MARY KEENE DO [facility] RAD ABDOMINAL PAIN [id number] 09/13/2014 07:33:00 09/13/2014 23:59:59 CLS Outpatient MARY KEENE DO [facility] RAD COUGH [id number] 02/18/2013 17:35:00 02/18/2013 18:35:00 DIS Inpatient [place] FACC, CULLEN MCKEON CCDS [facility] ICU CP [id number] 11/20/2017 20:50:00 ACT Inpatient SAMANTA BEACH, CONSUELO Fisher [facility] 4TH BLL PNEUMONIA, HYPOKALEMIA, HYPOMAGNESEMIA [id number] 07/21/2012 05:11:00 Document Registration [id number] 07/10/2012 20:11:00 Document Registration [id number] 04/22/2012 20:04:00 Document Registration [id number] 09/22/2014 07:08:22 ACT Document Registration
[2017-11-20 21:37] VITALS: BP 124/64
[2017-11-20] MEDS ORDERED: ONDANSETRON 4 MG/2 ML (SDV) Z0FRAN IV PRN (23:30)
[2017-11-20] MEDS ORDERED: ACETAMINOPHEN 500 MG TAB (TYLENOL) PO PRN (23:30)
[2017-11-20] MEDS: POTASSIUM CL 10 MEQ/50 ML IVPB (PRE-MIX) IV SCH (23:33)
[2017-11-20] MEDS: MAGNESIUM 1 GM/D5W 100 ML IVPB IV SCH (23:33)
[2017-11-20] MEDS: D5 NS W/KCL 20 MEQ/L 1,000 ML IV SCH (23:45)
[2017-11-21] VITALS: BP 132/74
[2017-11-21] MEDS ORDERED: RT-ALBUTEROL/IPRATROPIUM 3 ML (DUONEB) VIAL INH PRN
[2017-11-21] MEDS: POTASSIUM CL 10 MEQ/50 ML IVPB (PRE-MIX) IV SCH ×3 (01:06→03:07)
[2017-11-21] MEDS: MAGNESIUM 1 GM/D5W 100 ML IVPB IV SCH ×2 (01:22→02:44)
[2017-11-21 03:46] VITALS: BP 125/69
[2017-11-21] MEDS ORDERED: DEXTROSE 50% 50 ML (IMS) SYR ONE (04:29)
[2017-11-21 04:50] LABS: BASOPHILS % (AUTO) 0 % (0-10); EOSINOPHILS % (AUTO) 0 % (0-10); HEMATOCRIT 32 % (40-54); HEMOGLOBIN 10.9 G/DL (13.3-17.7); LYMPHOCYTES # (AUTO) 0.6 X 10^3 (1.0-4.0); LYMPHOCYTES % (AUTO) 6 % (12-44); MEAN CORPUSCULAR HEMOGLOBIN 29 PG (25-34); MEAN CORPUSCULAR HGB CONC 34 G/DL (32-36); MEAN CORPUSCULAR VOLUME 86 FL (80-99); MONOCYTES # (AUTO) 0.3 X 10^3 (0.0-1.0); MONOCYTES % (AUTO) 3 % (0-12); NEUTROPHILS # (AUTO) 9.8 X 10^3 (1.8-7.8); NEUTROPHILS % (AUTO) 91 % (42-75); PLATELET COUNT 166 10^3/uL (130-400); RED BLOOD COUNT 3.72 10^6/uL (4.35-5.85); RED CELL DISTRIBUTION WIDTH 13.4 % (10.0-14.5); WHITE BLOOD COUNT 10.7 10^3/uL (4.3-11.0)
[2017-11-21 05:18] LABS: ALANINE AMINOTRANSFERASE 19 U/L (0-55); ALBUMIN 2.7 GM/DL (3.2-4.5); ALKALINE PHOSPHATASE 108 U/L (40-136); BILIRUBIN,TOTAL 0.7 MG/DL (0.1-1.0); BUN/CREATININE RATIO 20; CARBON DIOXIDE 25 MMOL/L (21-32); CHLORIDE 106 MMOL/L (98-107); CREATININE SERUM 0.71 MG/DL (0.60-1.30); GFR ESTIMATED > 60; POTASSIUM 3.6 MMOL/L (3.6-5.0); SODIUM 137 MMOL/L (135-145)
[2017-11-21 05:20] LABS: GLUCOSE 31 MG/DL (70-105)
[2017-11-21] MEDS ORDERED: GLUCAGON EMERGENCY 1 MG/KIT IM PRN (06:00)
[2017-11-21] MEDS ORDERED: DEXTROSE 50% 50 ML (IMS) SYR IV PRN (06:00)
[2017-11-21] MEDS ORDERED: DEXTROSE 10% IV SOLUTION 1,000 ML IV PRN (06:00)
[2017-11-21] MEDS: D5 NS W/KCL 20 MEQ/L 1,000 ML IV SCH ×2 (06:17→10:45)
[2017-11-21] MEDS: RT-ALBUTEROL/IPRATROPIUM 3 ML (DUONEB) VIAL INH SCH ×4 (07:45→19:31)
[2017-11-21] MEDS: FAMOTIDINE 20 MG (PEPCID) TABLET PO SCH ×2 (08:27→20:36)
[2017-11-21 08:30] VITALS: BP 142/67
--- NOTE | 2017-11-21 08:56 | Diagnostic Imaging Report ---
PATIENT HISTORY: Pneumonia. TECHNIQUE: Single frontal view of the chest COMPARISON: 11/20/2017 FINDINGS: There are patchy airspace opacities in the right upper lobe and in the lung bases bilaterally. The heart is normal in size. There is mild central vascular congestion. Sternotomy wires and multiple clips are seen in the mediastinum. There is diffuse osteopenia. No acute osseous abnormality is seen. No pleural effusion or pneumothorax is seen. IMPRESSION: Patchy airspace opacities in the right upper lobe and bilateral lung bases, appear mildly increased compared to the prior study. It is consistent with history of pneumonia. Dictated by: Dictated on workstation # [id number]
[2017-11-21] MEDS: LEVOFLOXACIN 750 MG TAB (LEVAQUIN) PO SCH (11:01)
--- NOTE | 2017-11-21 11:02 | History & Physical-Hospitalist ---
History of Present Illness HPI/Chief Complaint Pt is an 87yoCM with a PMH of CVA, dementia, CAD s/p CABG, NIDDMII who presented to the ER due to AMS. He is unable to provide me any history due to his dementia. reports that 1 week ago he started coughing and was having fevers that she was treating around the clock with Tylenol Cold and Flu. He was still getting temps up to 100.2 despite this yesterday. Last night he started having slurred speech and weakness and she was worried her was having another stroke so she called EMS. Upon EMS presentation his blood sugar was found to be in the 30s. They gave him an amp of D50 which improved his mentation and BS while in transit but upon arrival here he had dropped back tot he 30s. He does not take insulin but does take glipizide. His reports he is acting like his normal self now (pleasantly confused and oriented only to person). He was found to have a bilateral pneumonia and was admitted for IV abx. Source: patient, family Exam Limitations: clinical condition (dementia) Date Seen 11/21/17 Time Seen by Provider: 10:45 Attending Physician Consuelo Babcock MD PCP No,Local Physician Referring Physician Date of Admission Nov 20, 2017 at 20:50 Home Medications & Allergies Home Medications Reviewed patient Home Medication Reconciliation performed by pharmacy medication reconciliations plasma center technician and/or nursing. Patients Allergies have been reviewed. Allergies Allergies Coded Allergies Cephalosporins (Unverified Allergy, Mild, 08/31/06) Penicillins (Unverified Allergy, Mild, 08/31/06) Past Gelqzqa-Krjjly-Hvkrqu Hx Past Med/Social Hx: Reviewed and Corrections made Patient Social History Marrital Status: Employed/Student: unemployed Alcohol Use: Denies Use Recreational Drug Use: No Smoking Status: Never a Smoker Physical Abuse Screen: No Sexual Abuse: No Recent Foreign Travel: No Contact w/other who traveled: No Recent Hopitalizations: No Recent Infectious Disease Expo: No Immunizations Up To Date Tetanus Booster (TDap): Unknown Pediatric: No Date of Pneumonia Vaccine: Jul 10, 2012 Date of Influenza Vaccine: Jun 16, 2016 Seasonal Allergies Seasonal Allergies: No Past Medical History Surgeries: Cardiac, CABG, Coronary Stent, Eye Surgery, Orthopedic, Renal Cardiac: Chronic Edema/Swelling, Coronary Artery Disease, High Cholesterol, Hypertension Neurological: Dementia, Stroke (with residual left sided weakness. ) Reproductive: No Genitourinary: Kidney Stones Musculoskeletal: Fractures Endocrine: Diabetes, Non-Insulin dep HEENT: Cataract Loss of Vision: Denies Hearing Impairment: Denies Cancer: Skin Did You Recieve Any Treatments: Yes What Type of Treatment Did You: Surgical Intervention History of Blood Disorders: No Adverse Reaction to Blood Whitehead: No Family History Reviewed Nursing Family Hx ALZHEIMER'S G8 SISTER OF CANCER G8 BROTHER HEART PROBLEMS G8 BROTHER Heart Disease, Cancer Review of Systems ROS-Unable to Obtain: Due to dementia- see HPI Constitutional: see HPI Physical Exam Physical Exam Vital Signs Vital Signs - First Documented 11/20/17 11/20/17 18:56 18:58 Temp 97.1 Pulse 66 Resp 18 B/P (MAP) 113/61 (78) Pulse Ox 94 O2 Delivery Nasal Cannula O2 Flow Rate 3.00 Capillary Refill : Less Than 3 Seconds General Appearance: No Apparent Distress, WD/WN, Chronically ill HEENT: PERRL/EOMI, Moist Mucous Membranes, No Scleral Icterus (L), No Scleral Icterus (R) Neck: Non Tender, Supple Respiratory: No Respiratory Distress, Decreased Breath Sounds Cardiovascular: Regular Rate, Rhythm, No Murmur Gastrointestinal: Normal Bowel Sounds, Non Tender, Soft Extremity: Normal Capillary Refill, No Calf Tenderness, No Pedal Edema Neurologic/Psychiatric: Alert, Normal Mood/Affect, Disoriented x3 (oriented to person only, not to place, time, or situation) Skin: Normal Color, Warm/Dry Results Results/Procedures Labs Laboratory Tests 11/20/17 18:58 11/21/17 04:30 Patient resulted labs reviewed. Imaging: Reviewed Imaging Films, Reviewed Imaging Report Imaging Date of Exam: 11/21/17 CHEST 1 VIEW, AP/PA ONLY PATIENT HISTORY: Pneumonia. TECHNIQUE: Single frontal view of the chest COMPARISON: 11/20/2017 FINDINGS: There are patchy airspace opacities in the right upper lobe and in the lung bases bilaterally. The heart is normal in size. There is mild central vascular congestion. Sternotomy wires and multiple clips are seen in the mediastinum. There is diffuse osteopenia. No acute osseous abnormality is seen. No pleural effusion or pneumothorax is seen. IMPRESSION: Patchy airspace opacities in the right upper lobe and bilateral lung bases, appear mildly increased compared to the prior study. It is consistent with history of pneumonia. Assessment/Plan Admission Diagnosis Bilateral Pneumonia Admission Status: Inpatient Order (span 2 midnights) Reason for Inpatient Admission: altered mentation, hypoglycemia, needs IV abx Diagnosis/Problems Diagnosis/Problems (1) Pneumonia Status: Acute Assessment & Plan: Does not meet sepsis criteria Continue on Levaquin as is responding well MAT protocol Titrate sats to keep greater than 90 Qualifiers: Pneumonia type: due to unspecified organism Laterality: bilateral Lung location: upper lobe of lung Qualified Codes: J18.1 - Lobar pneumonia, unspecified organism (2) Type II diabetes mellitus with hypoglycemia Status: Acute Assessment & Plan: Likely due to acute illness and glipizide use Will hold home meds Continue D5 ACHS accuchecks and prn any symptoms Qualifiers: Diabetes mellitus snf insulin use: without snf use Diabetes mellitus complication detail: without coma Qualified Codes: E11.649 - Type 2 diabetes mellitus with hypoglycemia without coma (3) Hypokalemia Status: Resolved Assessment & Plan: Replacing in fluids (4) Hypomagnesemia Status: Resolved Assessment & Plan: s/p supplementation in ER (5) Dementia Status: Acute Assessment & Plan: At baseline Monitor Qualifiers: Dementia type: unspecified type Dementia behavioral disturbance: without behavioral disturbance Qualified Codes: F03.90 - Unspecified dementia without behavioral disturbance (6) Prophylactic measure Assessment & Plan: D5 +20KCL at 100ml/hr Lovenox Reg Diet Clinical Quality Measures DVT/VTE Risk/Contraindication: Risk Factor Score Per Nursin RFS Level Per Nursing on Admit: 4+=Very High CONSUELO BABCOCK MD Nov 21, 2017 11:02
[2017-11-21 12:30] VITALS: BP 167/87
[2017-11-21] MEDS: ENOXAPARIN 40 MG/0.4 ML (LOVENOX) SYR SC SCH (13:52)
[2017-11-21 16:39] VITALS: BP 146/75
[2017-11-21] MEDS ORDERED: ATOR80TA76 PO (19:07)
[2017-11-21 20:01] VITALS: BP 108/62
[2017-11-21] MEDS ORDERED: LEVOFLOXACIN 750 MG/150 ML IV 150 ML IV SCH (21:00)
[2017-11-22 00:33] VITALS: BP 169/73
[2017-11-22 02:03] LABS: BILIRUBIN,URINE NEGATIVE (NEGATIVE); CLARITY,URINE CLEAR; COLOR,URINE YELLOW; GLUCOSE, URINE (UA) NEGATIVE (NEGATIVE); KETONES,URINE NEGATIVE (NEGATIVE); LEUKOCYTE ESTERASE ,URINE 1+ (NEGATIVE); NITRITE,URINE NEGATIVE (NEGATIVE); PH,URINE 6.5 (5-9); PROTEIN,URINE 2+ (NEGATIVE); UROBILINOGEN,URINE 1 MG/DL (NORMAL)
[2017-11-22 02:24] LABS: BACTERIA,URINE NEGATIVE /HPF; SQUAMOUS EPITHELIAL CELL,UR RARE /HPF; WBC,URINE RARE /HPF
[2017-11-22] MEDS: D5 NS W/KCL 20 MEQ/L 1,000 ML IV SCH ×2 (03:04→11:36)
[2017-11-22 04:08] VITALS: BP 166/77
[2017-11-22] MEDS: DEXTROSE 10% IV SOLUTION 1,000 ML IV PRN ×2 (04:48→16:12)
[2017-11-22] MEDS: RT-ALBUTEROL/IPRATROPIUM 3 ML (DUONEB) VIAL INH SCH ×4 (07:14→18:38)
[2017-11-22 08:00] VITALS: BP 145/79
[2017-11-22 09:12] LABS: BASOPHILS % (AUTO) 0 % (0-10); EOSINOPHILS % (AUTO) 1 % (0-10); HEMATOCRIT 33 % (40-54); HEMOGLOBIN 10.8 G/DL (13.3-17.7); LYMPHOCYTES # (AUTO) 0.7 X 10^3 (1.0-4.0); LYMPHOCYTES % (AUTO) 10 % (12-44); MEAN CORPUSCULAR HEMOGLOBIN 29 PG (25-34); MEAN CORPUSCULAR HGB CONC 33 G/DL (32-36); MEAN CORPUSCULAR VOLUME 88 FL (80-99); MEAN PLATELET VOLUME 11.2 FL (7.4-10.4); MONOCYTES # (AUTO) 0.5 X 10^3 (0.0-1.0); MONOCYTES % (AUTO) 7 % (0-12); NEUTROPHILS % (AUTO) 82 % (42-75); PLATELET COUNT 155 10^3/uL (130-400); RED BLOOD COUNT 3.71 10^6/uL (4.35-5.85); RED CELL DISTRIBUTION WIDTH 13.4 % (10.0-14.5); WHITE BLOOD COUNT 7.3 10^3/uL (4.3-11.0)
[2017-11-22 09:27] LABS: BUN/CREATININE RATIO 18; CALCIUM 8.3 MG/DL (8.5-10.1); CARBON DIOXIDE 25 MMOL/L (21-32); CHLORIDE 106 MMOL/L (98-107); CREATININE SERUM 0.77 MG/DL (0.60-1.30); GFR ESTIMATED > 60; POTASSIUM 3.7 MMOL/L (3.6-5.0); SODIUM 140 MMOL/L (135-145)
[2017-11-22 09:31] LABS: GLUCOSE 58 MG/DL (70-105)
[2017-11-22] MEDS: FAMOTIDINE 20 MG (PEPCID) TABLET PO SCH (09:34)
[2017-11-22] MEDS ORDERED: LEVOFLOXACIN 750 MG TAB (LEVAQUIN) PO SCH (11:00)
[2017-11-22] MEDS ORDERED: ACET-2267 PO (11:35)
[2017-11-22 12:00] VITALS: BP 176/80
[2017-11-22] MEDS: ENOXAPARIN 40 MG/0.4 ML (LOVENOX) SYR SC SCH (13:15)
[2017-11-22 16:00] VITALS: BP 156/85
--- NOTE | 2017-11-22 16:46 | Progress Note-Hospitalist ---
Progress Note HPI/CC on Admission Pt is an 87yoCM with a PMH of CVA, dementia, CAD s/p CABG, NIDDMII who presented to the ER due to AMS. He is unable to provide me any history due to his dementia. reports that 1 week ago he started coughing and was having fevers that she was treating around the clock with Tylenol Cold and Flu. He was still getting temps up to 100.2 despite this yesterday. Last night he started having slurred speech and weakness and she was worried her was having another stroke so she called EMS. Upon EMS presentation his blood sugar was found to be in the 30s. They gave him an amp of D50 which improved his mentation and BS while in transit but upon arrival here he had dropped back tot he 30s. He does not take insulin but does take glipizide. His reports he is acting like his normal self now (pleasantly confused and oriented only to person). He was found to have a bilateral pneumonia and was admitted for IV abx. Progress Notes/Assess & Plan Date Seen 11/22/17 Time Seen by Provider: 16:45 Assessment & Plan The patient is a very demented 87-year-old white male. He had presented to the emergency room with blood sugars in the 30s and somnolence and confusion below his usual baseline. He had been taking oral hypoglycemics and the hypoglycemia has persisted through the hospital course. He is required D50 W at intervals. He is being weaned off of D10 W at this time. It appears that the blood sugars are now consistently in the 100s. In discussing this with the it is felt that the using oral hypoglycemics is no longer feasible. I would plan to use basal insulin and not be concerned about blood sugars under 300. Physical exam: He is poorly groomed. He has multiple eschars about his scalp and face. The states that these are skin cancers of which she has had many but exacerbated by his constant excoriation. Lungs were clear to auscultation CV was regular. Abdomen was soft. Impression: Persistent hypoglycemia as a result of oral hypoglycemics 2.multiple skin cancers. 3.moderately severe dementia. Plan: The states that they are planning to take him home. We will initiate basal insulin and stop the oral. The plan is to discharge tomorrow. MARIELA GOLDEN MD Nov 22, 2017 16:46
[2017-11-22 19:25] VITALS: BP 168/87
[2017-11-23 00:12] VITALS: BP 164/83
[2017-11-23] MEDS: D5 NS W/KCL 20 MEQ/L 1,000 ML IV SCH (03:29)
[2017-11-23 03:48] VITALS: BP 159/88
[2017-11-23 05:49] VITALS: BP 164/86
[2017-11-23 07:19] VITALS: BP 152/68
[2017-11-23 07:48] VITALS: BP 164/86
[2017-11-23] MEDS: RT-ALBUTEROL/IPRATROPIUM 3 ML (DUONEB) VIAL INH SCH (07:48)
[2017-11-23] MEDS: FAMOTIDINE 20 MG (PEPCID) TABLET PO SCH (08:01)
[2017-11-23] MEDS ORDERED: INSU100V5 SQ (10:48)
--- NOTE | 2017-11-23 10:53 | Discharge Instructions ---
Discharge Instructions Patient Instructions Patient Instructions: Resume previous activities. As noted on the discharge sequence. The oral diabetic med glyburide. A basal insulin product has been ordered and transmitted to your pharmacy. Activity & Diet Discharge Diet: No Restrictions MARIELA GOLDEN MD Nov 23, 2017 10:53
[2017-11-23] MEDS: ENOXAPARIN 40 MG/0.4 ML (LOVENOX) SYR SC SCH (11:15)
[2017-11-23] MEDS: LEVOFLOXACIN 750 MG TAB (LEVAQUIN) PO SCH (11:42)
[2017-11-23 12:00] VITALS: BP 123/59
[2017-11-23] MEDS ORDERED: RT-ALBUTEROL/IPRATROPIUM 3 ML (DUONEB) VIAL INH SCH (21:00)
== END 2017-11-23 12:00 | disposition home or self-care (01) | DRG 194 ==
LOC: EDUNIT# 18:31 → ER 18:38 → 4TH 20:50
PROVIDERS: ADMIT Family Medicine; ATTEND Family Medicine
DX: J18.9 Pneumonia, unspecified organism (principal); E11.649 Type 2 diabetes mellitus with hypoglycemia without coma; E87.6 Hypokalemia; E83.42 Hypomagnesemia; I69.354 Hemiplegia and hemiparesis following cerebral infarction affecting left non-dominant side; F03.90 Unspecified dementia, unspecified severity, without behavioral disturbance, psychotic disturbance, mood disturbance, and anxiety; I25.10 Atherosclerotic heart disease of native coronary artery without angina pectoris; I10 Essential (primary) hypertension; E78.00 Pure hypercholesterolemia, unspecified; R60.9 Edema, unspecified; Z95.1 Presence of aortocoronary bypass graft; Z95.5 Presence of coronary angioplasty implant and graft; Z79.84 Long term (current) use of oral hypoglycemic drugs; Z85.828 Personal history of other malignant neoplasm of skin; Z87.442 Personal history of urinary calculi
CPT/HCPCS: 36415; 71045; 80048; 80053; 81000; 82150; 82947; 82962; 83036; 83690; 83735; 85007; 85025; 85027; 93041; 94640; 94664; 94760; 96365; 96367; 96368; 96375